=== PATIENT | female | born 1930 | race Caucasian/White ===

== ENCOUNTER 2018-04-13 14:38 | Observation (INO) | payer OTHER ==
[2018-04-13] MEDS ORDERED: FUROSEMIDE 20 MG/ 2ML VIAL ONE (15:09)
[2018-04-13] MEDS ORDERED: METHYLPREDNISOLONE 125 MG INJ ONE (15:09)
[2018-04-13 15:16] LABS: Absolute Lymphocytes (CBC) 1.8 K/uL (0.7-4.9); Absolute Monocytes 0.5 K/uL (0.1-1.3); Absolute Neutrophil 4.4 K/uL (1.8-8.0); Basophils % 0.5 % (0-1.3); Eosinophils % 1.2 % (0-4.4); Hematocrit 43.3 % (36.0-45.0); Lymphocytes % 26.6 % (15.3-44.8); MCH 29.5 pg (27.0-35.0); MCV 86.1 fL (80-100); MPV 10.6 fL (7.6-11.3); Monocytes % 6.8 % (3.3-12.3); RBC Red Blood Cell Count 5.02 M/uL (3.86-4.86)
--- NOTE | 2018-04-13 15:24 | EKG ---
Test Date: 2018-04-13 Test Time: 14:59:00 Tube Machine Operator Helper: JUAN MEASUREMENT RESULTS: Intervals: Rate: 76 NC: 184 QRSD: 78 QT: 416 QTc: 468 [place]: P: 74 NC: 184 QRS: 46 T: 89 INTERPRETIVE STATEMENTS: Normal sinus rhythm Normal ECG Compared to ECG 03/04/2014 06:24:20 No significant changes Electronically Signed On 04-13-18 15:23:46 RESEARCH SPECIALIST by Donal Nichols
[2018-04-13 15:35] LABS: BUN Blood Urea Nitrogen 34 mg/dL (7-18); Bicarbonate 33 mmol/L (21-32); Glucose Level 161 mg/dL (74-106); NT PRO-BNP 820 pg/mL (<450); Potassium 3.6 mmol/L (3.5-5.1); Sodium Level 143 mmol/L (136-145); Troponin (Emerg Dept Use Only) < 0.02 ng/mL (0.0-0.045)
--- NOTE | 2018-04-13 15:41 | RAD REPORT ---
EXAM DESCRIPTION: RAD - Chest Single View - 04/13/2018 3:30 pm CLINICAL HISTORY: Shortness of breath COMPARISON: February 2014 TECHNIQUE: AP portable chest image was obtained 1515 hours . FINDINGS: Lungs are fibrotic with no focal infiltrate, mass or significant failure finding. Cardiac silhouette is enlarged and increased from the prior study. Vasculature is mildly prominent. A minimal failure or volume overload is possible. Trachea is midline. No measurable pleural effusion and no pn eumothorax. No acute bony abnormality seen. No acute aortic finding. Patient has a very large hiatal hernia with most if not all of the stomach in the midline and right s ariela chest. This is not new but is substantially enlarged from the comparison. IMPRESSION: No focal mass or consolidation. Heart, vasculature and lung markings are increased from comparison and may reflect a mild failure or volume overload. Very large hiatal hernia with most if not all of the stomach intrathoracic. This is not new but has i ncreased from 2013.
[2018-04-13] MEDS ORDERED: LEVALBUTEROL 1.25 MG/3 ML NEB ONE (16:22)
--- NOTE | 2018-04-13 16:26 | ER ---
Nurse's Notes [facility] Name: Dasha Brown Age: 87 yrs Sex: Female : 1930 Arrival Date: 04/13/2018 Time: 14:40 Bed 18 Private MD: Diagnosis: Chronic obstructive pulmonary disease with acute lower respiratory infection;Pulmonary edema;Dyspnea Presentation: 04/13 14:40 Presenting complaint: EMS states: pt was short of breath that has gotten worse over the tw2 past 2 weeks. Transition of care: patient was received from another setting of care (long-term care [facility]. Onset of symptoms was April 13, 2018 at 14:41. Risk Assessment: Do you want to hurt yourself or someone else? Patient reports no desire to harm self or others. Initial Sepsis Screen: Does the patient meet any 2 criteria? RR > 20 per min. Does the patient have a suspected source of infection? No. Patient's initial sepsis screen is negative. Care prior to arrival: Medication(s) given: Albuterol Neb x 1. 14:40 Method Of Arrival: EMS: [facility] tw2 14:40 Acuity: CY 3 tw2 Triage Assessment: 14:50 General: Appears in no apparent distress. Behavior is calm. Respiratory: Reports tw2 shortness of breath Onset: The symptoms/episode began/occurred "i have been telling them for a week about this", the patient has mild shortness of breath. Historical: - Allergies: 15:14 Lipitor; ph - Home Meds: 15:14 amlodipine 10 mg tab 1 tab once daily [Active]; Aricept 5 mg Oral tab 1 tab nightly ph [Active]; aspirin 81 mg Oral chew 1 tab once daily [Active]; clopidogrel 75 mg oral tab 1 tab once daily [Active]; Combivent Respimat 20-100 mcg/actuation inhalation mist 1 puff 4 times per day [Active]; diclofenac sodium 0.1 % ophthalmic drop 1 drop three times a day [Active]; Flonase 50 mcg/actuation Nasal spsn 1 spray 2 times per day [Active]; ipratropium-albuterol 0.5 mg-3 mg(2.5 mg base)/3 mL Inhl nebu 3 mL 4 times per day [Active]; Klor-Con 10 10 mEq Oral TbER 1 tab once daily [Active]; loratadine 10 mg oral tab 1 tab once daily [Active]; Lyrica 75 mg Oral 1 cap 2 times per day for Postherpetic Neuralgia [Active]; Namenda 10 mg oral tab 1 tab 2 times per day [Active]; simvastatin 10 mg Oral tab 1 tab once daily [Active]; Tylenol 325 mg oral tab 2 tabs every 6 hours [Active]; valsartan-hydrochlorothiazide 160-12.5 mg oral tab 1 tab once daily [Active]; - PMHx: 15:14 Dementia; Trigeminal neuralgia; Hyperlipidemia; Hypertension; TIA; heart murmur ph (benign); COPD; Aortic Stenosis; - Immunization history:: Adult Immunizations. - Social history:: Smoking status: . - Family history:: not pertinent. - Ebola Screening: : Patient denies travel to an Ebola-affected area in the 21 days before illness onset. - Hospitalizations: : No recent hospitalization is reported. Screenin:05 Abuse screen: Denies threats or abuse. Nutritional screening: No deficits noted. tw2 Tuberculosis screening: No symptoms or risk factors identified. Fall Risk Secondary diagnosis (15 points) dementia, impaired mobility. Assessment: 14:40 General: Appears in no apparent distress. obese, Behavior is calm, cooperative, tw2 appropriate for age. Pain: Denies pain. Neuro: Level of Consciousness is awake, alert, obeys commands, Oriented to person, place. Cardiovascular: Rhythm is sinus rhythm. Respiratory: Airway is patent Respiratory effort is even, unlabored, Respiratory pattern is regular, symmetrical, Breath sounds with crackles bilaterally. GI: No signs and/or symptoms were reported involving the gastrointestinal system. Abdomen is round non-distended, obese, Bowel sounds present X 4 quads. : No signs and/or symptoms were reported regarding the genitourinary system. EENT: No signs and/or symptoms were reported regarding the EENT system. Derm: No signs and/or symptoms reported regarding the dermatologic system. Skin is intact, is fragile, is thin, Skin is dry. Musculoskeletal: Range of motion: intact in all extremities. 15:30 Reassessment: Patient appears in no apparent distress at this time. No changes from tw2 previously documented assessment. Patient and/or family updated on plan of care and expected duration. Pain level reassessed. 16:04 Reassessment: Patient appears in no apparent distress at this time. No changes from tw2 previously documented assessment. Patient and/or family updated on plan of care and expected duration. Pain level reassessed. 17:04 Reassessment: Patient appears in no apparent distress at this time. No changes from tw2 previously documented assessment. Patient and/or family updated on plan of care and expected duration. Pain level reassessed. 17:36 Reassessment: order Flu per Dr. Trejo. tw2 18:05 Reassessment: Patient appears in no apparent distress at this time. No changes from tw2 previously documented assessment. Patient and/or family updated on plan of care and expected duration. Pain level reassessed. 19:11 General: Appears in no apparent distress. comfortable, Behavior is calm, cooperative. ao Pain: Denies pain. Neuro: Level of Consciousness is awake, alert, obeys commands, Oriented to person, place, Moves all extremities. Full function Speech is normal, Cardiovascular: Heart tones S1 S2 Capillary refill < 3 seconds. Respiratory: Airway is patent Respiratory effort is even, unlabored, Respiratory pattern is regular, symmetrical, Breath sounds with crackles bilaterally. GI: Abdomen is round non-distended, obese, Bowel sounds present X 4 quads. : No signs and/or symptoms were reported regarding the genitourinary system. EENT: No signs and/or symptoms were reported regarding the EENT system. Derm: Skin is intact, is fragile, is thin, Skin is. Musculoskeletal: Range of motion: intact in all extremities. 19:20 Reassessment: Waiting on nurse to give report. Patient o be admitted to the hospital. ao Vital Signs: 14:41 BP 187 / 78; Pulse 77; Resp 20; Pulse Ox 100% on R/A; Pain 0/10; tw2 14:41 Temp 97.7(O); tw2 15:30 BP 127 / 48; Pulse 69; Resp 15; Pulse Ox 100% on 2 lpm NC; tw2 16:03 BP 129 / 57; Pulse 86; Resp 17; Pulse Ox 99% on 2 lpm NC; tw2 17:03 BP 143 / 54; Pulse 79; Resp 17; Pulse Ox 97% on R/A; tw2 18:05 BP 123 / 47; Pulse 65; Resp 18; Pulse Ox 95% on R/A; tw2 19:15 BP 120 / 50; Pulse 78; Resp 18; Pulse Ox 94% on R/A; Pain 0/10; ao ED Course: 14:40 Patient arrived in ED. tw2 14:40 Margarito Cisneros MD is Attending Physician. rn 14:40 Arm band placed on. tw2 14:40 Bed in low position. Side rails up X2. monitoring specialist on. Pulse ox on. NIBP on. tw2 14:41 Triage completed. tw2 14:45 Inserted saline lock: 22 gauge in right antecubital area, using aseptic technique. tw2 Blood collected. 14:57 Anjali Gardner RN is Primary Nurse. tw2 15:02 EKG done, by radio television technical director. reviewed by Margarito Cisneros MD. dt2 15:05 Figueredo cath inserted, using sterile technique, 16 Fr., by nd, balloon inflated, to tw2 gravity drainage, urine specimen collected. Teja Marmolejo served as music sound light technician. 15:29 X-ray completed. Portable x-ray completed in exam room. Patient tolerated procedure az well. 15:30 XRAY CXR (1 view) In Process Unspecified. EDMS 16:25 Jackson Trejo MD is Hospitalizing Provider. rn 19:00 Report given to JARVIS Odell. tw2 19:15 Primary Nurse role handed off by Anjali Gardner RN ao 19:15 Jose R Washington RN is Primary Nurse. ao 20:29 No provider procedures requiring assistance completed. Patient admitted, IV remains in ao place. Administered Medications: 15:12 Drug: SOLU-Medrol 125 mg Route: IVP; Site: right antecubital; tw2 16:15 Follow up: Response: No adverse reaction tw2 15:14 Drug: Lasix 20 mg Route: IVP; Site: right antecubital; tw2 16:15 Follow up: Response: No adverse reaction tw2 16:14 Drug: Xopenex (3) 1.25 mg Route: Inhalation; tw2 Outcome: 16:25 Decision to Hospitalize by Provider. rn 20:29 Admitted to Tele accompanied by tech, room 414, with chart, Report called to gibson Witt RN 20:29 Condition: stable 20:29 Instructed on the need for admit. 20:30 Patient left the ED. ao Signatures: Dispatcher [employer] EDMS Margarito Cisneros MD MD rn Rust, Yasmin, RN RN Jose R Washington, RN RN Anjali Johnson RN RN tw2 Alisa Silva 2 Shital Hooper Corrections: (The following items were deleted from the chart) 16:04 16:03 BP 127 / 48; Pulse 69bpm; Resp 15bpm; Pulse Ox 100% RA; tw2 tw2
--- NOTE | 2018-04-13 16:26 | EDPHYS ---
Physician Documentation [facility] Name: Dasha Brown Age: 87 yrs Sex: Female : 1930 Arrival Date: 04/13/2018 Time: 14:40 Bed 18 Private MD: ED Physician Margarito Cisneros HPI: 04/13 15:55 This 87 yrs old Female presents to ER via EMS with complaints of Shortness Of rn Breath. 15:55 The patient has shortness of breath at rest. Onset: The symptoms/episode began/occurred rn 2 week(s) ago. Duration: The symptoms are intermittent. The patient's shortness of breath is aggravated by coughing, light activity, supine position. Severity of symptoms: At their worst the symptoms were moderate in the emergency department the symptoms are unchanged. The patient has experienced similar episodes in the past. The patient has been recently seen by a physician:. 15:57 [facility], intermittent for 2 weeks, has hx of copd and takes rn lasix for "localized swelling". No fever, + cough. . Historical: - Allergies: 15:14 Lipitor; ph - Home Meds: 15:14 amlodipine 10 mg tab 1 tab once daily [Active]; Aricept 5 mg Oral tab 1 tab nightly ph [Active]; aspirin 81 mg Oral chew 1 tab once daily [Active]; clopidogrel 75 mg oral tab 1 tab once daily [Active]; Combivent Respimat 20-100 mcg/actuation inhalation mist 1 puff 4 times per day [Active]; diclofenac sodium 0.1 % ophthalmic drop 1 drop three times a day [Active]; Flonase 50 mcg/actuation Nasal spsn 1 spray 2 times per day [Active]; ipratropium-albuterol 0.5 mg-3 mg(2.5 mg base)/3 mL Inhl nebu 3 mL 4 times per day [Active]; Klor-Con 10 10 mEq Oral TbER 1 tab once daily [Active]; loratadine 10 mg oral tab 1 tab once daily [Active]; Lyrica 75 mg Oral 1 cap 2 times per day for Postherpetic Neuralgia [Active]; Namenda 10 mg oral tab 1 tab 2 times per day [Active]; simvastatin 10 mg Oral tab 1 tab once daily [Active]; Tylenol 325 mg oral tab 2 tabs every 6 hours [Active]; valsartan-hydrochlorothiazide 160-12.5 mg oral tab 1 tab once daily [Active]; - PMHx: 15:14 Dementia; Trigeminal neuralgia; Hyperlipidemia; Hypertension; TIA; heart murmur ph (benign); COPD; Aortic Stenosis; - Immunization history:: Adult Immunizations. - Social history:: Smoking status: . - Family history:: not pertinent. - Ebola Screening: : Patient denies travel to an Ebola-affected area in the 21 days before illness onset. - Hospitalizations: : No recent hospitalization is reported. ROS: 16:01 Constitutional: Negative for fever, chills, and weight loss, Eyes: Negative for injury, rn pain, redness, and discharge, Neck: Negative for injury, pain, and swelling, Cardiovascular: Negative for chest pain, palpitations Respiratory: Negative for pleuritic chest pain Abdomen/GI: Negative for abdominal pain, nausea, vomiting, diarrhea, and constipation, MS/Extremity: Negative for injury and deformity, Skin: Negative for injury, rash, and discoloration, Neuro: Negative for headache, numbness, tingling, and seizure. Exam: 16:01 Constitutional: This is a well developed, well nourished patient who is awake, alert, rn mild tachypnea Head/Face: Normocephalic, atraumatic. ENT: dry MM, no stridor Cardiovascular: Regular rate and rhythm, No pulse deficits. Respiratory: + mild tachypnea, no retractions, + diminished bases with exp wheezing. Abdomen/GI: soft, non-tender MS/ Extremity: Pulses equal, no cyanosis. Neurovascular intact. Full, normal range of motion. Equal circumference. 1+ non-pitting edema bilateral lower ext Neuro: Awake and alert, GCS 15, oriented to person, place. Cranial nerves II-XII grossly intact. Motor strength 5/5 in all extremities. Sensory grossly intact. Vital Signs: 14:41 BP 187 / 78; Pulse 77; Resp 20; Pulse Ox 100% on R/A; Pain 0/10; tw2 14:41 Temp 97.7(O); tw2 15:30 BP 127 / 48; Pulse 69; Resp 15; Pulse Ox 100% on 2 lpm NC; tw2 16:03 BP 129 / 57; Pulse 86; Resp 17; Pulse Ox 99% on 2 lpm NC; tw2 17:03 BP 143 / 54; Pulse 79; Resp 17; Pulse Ox 97% on R/A; tw2 18:05 BP 123 / 47; Pulse 65; Resp 18; Pulse Ox 95% on R/A; tw2 19:15 BP 120 / 50; Pulse 78; Resp 18; Pulse Ox 94% on R/A; Pain 0/10; ao MDM: 14:40 Patient medically screened. rn 16:23 Differential diagnosis: Anemia Bronchitis CHF exacerbation, Chronic Obstructive rn Pulmonary Disease Myocardial Infarction pneumonia, Pneumothorax pulmonary edema. Data reviewed: vital signs, nurses notes, lab test result(s), EKG, radiologic studies, plain films, and as a result, I will admit patient. Counseling: I had a detailed discussion with the patient and/or guardian regarding: the historical points, exam findings, and any diagnostic results supporting the discharge/admit diagnosis, lab results, radiology results, the need for further work-up and treatment in the hospital. Response to treatment: the patient's symptoms have mildly improved after treatment, and as a result, I will admit patient. Admission orders: after a detailed discussion of the patient's condition and case, the admit orders are written by me. ED course: Pt admitted to Dr. Trejo for COPD exacerbation and volume overload, not much oxygen requirement but + increased work of breathing despite 1 week of symptoms and outpt treatment. . 04/13 14:41 Order name: Blood Culture Adult (2) rn 04/13 14:41 Order name: BMP; Complete Time: 16:05 04/13 14:41 Order name: CBC with Diff; Complete Time: 16:05 04/13 14:41 Order name: NT PRO-BNP; Complete Time: 16:05 rn 04/13 14:41 Order name: Troponin (emerg Dept Use Only); Complete Time: 16:05 rn 04/13 15:37 Order name: Urine Dipstick--Ancillary (enter results); Complete Time: 16:57 04/13 14:41 Order name: XRAY CXR (1 view); Complete Time: 16:05 rn 04/13 14:41 Order name: EKG; Complete Time: 14:42 rn 04/13 14:41 Order name: Cardiac monitoring; Complete Time: 14:58 rn 04/13 14:41 Order name: EKG - Nurse/Tech; Complete Time: 14:58 rn 04/13 17:36 Order name: Flu; Complete Time: 18:15 tw2 04/13 14:41 Order name: IV Saline Lock; Complete Time: 14:58 rn 04/13 14:41 Order name: Labs collected and sent; Complete Time: 14:58 rn 04/13 14:41 Order name: O2 Per Protocol; Complete Time: 14:58 rn 04/13 14:41 Order name: O2 Sat Monitoring; Complete Time: 14:58 rn 04/13 15:14 Order name: Figueredo; Complete Time: 15:15 tw2 Administered Medications: 15:12 Drug: SOLU-Medrol 125 mg Route: IVP; Site: right antecubital; tw2 16:15 Follow up: Response: No adverse reaction tw2 15:14 Drug: Lasix 20 mg Route: IVP; Site: right antecubital; tw2 16:15 Follow up: Response: No adverse reaction tw2 16:14 Drug: Xopenex (3) 1.25 mg Route: Inhalation; tw2 Disposition: 04/13/18 16:25 Hospitalization ordered by Jackson Trejo for Inpatient Admission. Preliminary diagnosis are Chronic obstructive pulmonary disease with acute lower respiratory infection, Pulmonary edema, Dyspnea. - Bed requested for Telemetry/MedSurg (Inpatient). - Status is Inpatient Admission. ao - Condition is Stable. - Problem is an ongoing problem. - Symptoms have improved. UTI on Admission? No Signatures: Dispatcher [employer] EDGA Adelaida Aquino RN RN Margarito Cisneros MD MD rn Hall, Patricia, RN RN Jose R Washington RN RN ao Wise, Tara, RN RN tw2 Margarita Rodriguez Corrections: (The following items were deleted from the chart) 16:51 16:25 Hospitalization Ordered by Jackson Trejo MD for Inpatient Admission. Preliminary eb diagnosis is Chronic obstructive pulmonary disease with acute lower respiratory infection; Pulmonary edema; Dyspnea. Bed requested for Telemetry/MedSurg (Inpatient). Status is Inpatient Admission. Condition is Stable. Problem is an ongoing problem. Symptoms have improved. UTI on Admission? No. rn 18:40 16:51 04/13/2018 16:25 Hospitalization Ordered by Jackson Trejo MD for Inpatient dw Admission. Preliminary diagnosis is Chronic obstructive pulmonary disease with acute lower respiratory infection; Pulmonary edema; Dyspnea. Bed requested for Telemetry/MedSurg (Inpatient). Status is Inpatient Admission. Condition is Stable. Problem is an ongoing problem. Symptoms have improved. UTI on Admission? No. eb 20:30 18:40 04/13/2018 16:25 Hospitalization Ordered by Jackson Trejo MD for Inpatient ao Admission. Preliminary diagnosis is Chronic obstructive pulmonary disease with acute lower respiratory infection; Pulmonary edema; Dyspnea. Bed requested for Telemetry/MedSurg (Inpatient). Status is Inpatient Admission. Condition is Stable. Problem is an ongoing problem. Symptoms have improved. UTI on Admission? No. dw
[2018-04-13 16:44] LABS: Urine Blood NEGATIVE (NEG); Urine Glucose NEGATIVE (NEG); Urine Protein NEGATIVE (NEG); Urine Specific Gravity 1.015 (1.005-1.030)
--- NOTE | 2018-04-13 18:38 | P.HP ---
Certification for Inpatient Patient admitted to: Inpatient With expected LOS: >2 Midnights Practitioner: I am a practitioner with admitting privileges, knowledge of patient current condition, hospital course, and medical plan of care. Services: Services provided to patient in accordance with Admission requirements found in Title 42 Section 412.3 of the Code of Federal Regulations Patient History Date of Service: 04/13/18 Reason for admission: Increased work of breathing History of Present Illness: This is an 79-year-old female admitted from [facility] for increased work of breathing. Unable to get any history from patient as she seems to be very confused (baseline?) and unable to really provide what's going on with her. Per chart review, patient has been having increased work of breathing for the past 1-1.5 weeks that has not been improving with her regular breathing treatments. In the ED, she was given 20 mg of IV Lasix, 125 mg of Solu-Medrol and 3 of 1.25 mg of Xopenex. At the time of my exam, patient is arousable, can have conversations though does not really seem to remember much and seems to be confused. She was oriented to self only. Review of Systems is unable to be obtained Physical Examination - Physical Exam General: In no apparent distress, Oriented x1, Confused, Other (Arousable, also responsive to questions just not appropriately) HEENT: Atraumatic, PERRLA, Mucous membr. moist/pink, EOMI, Sclerae nonicteric Neck: Supple, 2+ carotid pulse no bruit, No LAD, Without JVD or thyroid abnormality Respiratory: Dull, Expiratory wheezes, Inspiratory wheezes Cardiovascular: Regular rate/rhythm, Normal S1 S2 Gastrointestinal: Normal bowel sounds, No tenderness Musculoskeletal: No tenderness Integumentary: No rashes Neurological: Normal gait, Normal speech, Normal strength at 5/5 x4 extr, Normal tone, Normal affect Lymphatics: No axilla or inguinal lymphadenopathy - Studies Laboratory Data (last 24 hrs) 04/13/18 14:50: WBC 6.8, Hgb 14.8, Hct 43.3, Plt Count 194 04/13/18 14:50: Sodium 143, Potassium 3.6, BUN 34 H, Creatinine 1.60 H, Glucose 161 H Microbiology Data (last 24 hrs): 04/13/18 17:39 Nasopharnyx Influenza Type A Antigen Screen - Final 04/13/18 17:39 Nasopharnyx Influenza Type B Antigen Screen - Final Assessment and Plan - Plan This is an 79-year-old female admitted from [facility] with: Acute respiratory distress Large hiatal hernia Acute kidney injury Dementia Hyperlipidemia Essential hypertension. History of TIA COPD, acute exacerbation Aortic stenosis Admit patient to floor with tele. Breathing treatments as needed Oxygen per protocol Will continue IV steroids, weaned to oral as tolerated The increased work of breathing, is likely secondary to this large hiatal hernia that has increased from 2013 versus COPD exacerbation. May need to get GI and/or surgical evaluation. Unsure if she is a good surgical candidate at this time though. Barium swallow study ordered to see if hiatal hernia can be evaluated further Will restart home medications once they have been reconciled. DVT prophylaxis: Lovenox GI prophylaxis: None Diet: Heart healthy Disposition: Admit to floor with tele. Pending symptomatic improvement. - Advance Directives Does patient have a Living Will: No Does patient have a Durable POA for Healthcare: No Time Spent Managing Pts Care (In Minutes): 55
[2018-04-13] MEDS ORDERED: ALBUTEROL 2.5 MG/3 ML NEB SOL NEB PRN (20:53)
[2018-04-13] MEDS ORDERED: ONDANSETRON 4 MG/2 ML VIAL IV PRN (20:53)
[2018-04-13] MEDS: IPRATROPIUM BROM 0.5MG/2.5ML NEB SCH (22:20)
[2018-04-14] MEDS: IPRATROPIUM BROM 0.5MG/2.5ML NEB SCH ×4 (02:40→19:37)
[2018-04-14 04:07] LABS: Absolute Lymphocytes (CBC) 0.4 K/uL (0.7-4.9); Absolute Neutrophil 4.6 K/uL (1.8-8.0); Hematocrit 36.2 % (36.0-45.0); Lymphocytes % 7.8 % (15.3-44.8); MCV 85.5 fL (80-100); MPV 10.7 fL (7.6-11.3); RBC Red Blood Cell Count 4.24 M/uL (3.86-4.86)
[2018-04-14 04:27] LABS: Albumin 2.8 g/dL (3.4-5.0); Bilirubin Total 0.2 mg/dL (0.2-1.0); Magnesium 2.4 mg/dL (1.8-2.4); Phosphorus 4.4 mg/dL (2.5-4.9); Potassium 3.7 mmol/L (3.5-5.1); Protein, Total 7.1 g/dL (6.4-8.2)
[2018-04-14 06:02] LABS: Blood Morphology Comment NOT SEEN (NOT SEEN); Platelet Estimate ADEQ
[2018-04-14] MEDS ORDERED: POTASSIUM CL SA 10 MEQ TAB PO ONE (06:30)
[2018-04-14] MEDS: ENOXAPARIN 30 MG/0.3 ML SQ SCH (09:26)
[2018-04-14] MEDS: CLOPIDOGREL 75 MG TABLET PO SCH (12:36)
[2018-04-14] MEDS: hydroCHLOROthiazide 12.5 MG CAP PO SCH (12:36)
[2018-04-14] MEDS: FUROSEMIDE 40 MG TABLET PO SCH (12:36)
[2018-04-14] MEDS: LORATADINE 10 MG TAB PO SCH (12:36)
[2018-04-14] MEDS: VALSARTAN 80 MG TAB PO SCH (12:37)
[2018-04-14] MEDS: AMLODIPINE 10 MG TAB PO SCH (12:37)
[2018-04-14] MEDS: MEMANTINE HCL 10 MG TABLET PO SCH ×2 (12:38→21:33)
[2018-04-14] MEDS: PREGABALIN 75 MG CAP PO SCH ×2 (12:38→21:28)
[2018-04-14] MEDS: ASPIRIN 81 MG CHEWABLE TABLET PO SCH (12:38)
--- NOTE | 2018-04-14 12:51 | RAD REPORT ---
EXAM DESCRIPTION: RAD - Esophagram Only - 04/14/2018 12:01 pm CLINICAL HISTORY: Abdominal pain/abnormal radiologic exam COMPARISON: 2008 CT chest FINDINGS: A large paraesophageal hiatal hernia is present. The herniated stomach lies to the right o f midline. The wall of distal esophagus is thickened. The mucosal folds of the esophagus are thickened. No obstructing or constricting lesions are noted Fluoroscopy time 2.4 minutes. Twenty-four fluoroscopic spot images obtained IMPRESSION: Large paraesophageal hiatal hernia Thickened esophageal mucosal folds may indicate an esophagitis Thickening of the wall of the distal esophagus may be secondary to incomplete distention, inflammatio n or less likely a mass. CT abdomen recommended for further evaluation
[2018-04-14] MEDS ORDERED: OPTH OPTH SCH (14:00)
[2018-04-14] MEDS ORDERED: DICLOFENAC NA OPTH SCH (14:00)
[2018-04-14] MEDS ORDERED: SODIUM CHLORIDE 0.9% 10ML INJ IV PRN (15:43)
[2018-04-14] MEDS: PANTOPRAZOLE 40 MG INJ IVP SCH (16:28)
--- NOTE | 2018-04-14 20:21 | PN ---
Date of Progress Note: 04/14/2018 History: The patient seen and examined. Chart reviewed and case discussed with RN. No acute events overnight. The patient still having some shortness of breath requiring supplemental oxygen. Code status, full. Medications: List reviewed. Physical Examination: Vital Signs: Temperature 98.1, heart rate 78, blood pressure 120/51, respirations 18, O2 94% on 1 L via nasal cannula. General: Awake, alert, oriented x1, some mild distress. Elderly female, ill- appearing, obese. CV: S1, S2. Regular rate and rhythm. Peripheral pulses present. Respiratory: Diminished breath sounds. Some crackles heard. No stridor. No wheezing. No use of accessory muscles. Gastrointestinal: Abdomen is soft, nontender, nondistended. Positive bowel sounds. Extremities: No clubbing, cyanosis. Trace pedal edema. Neuro: Nonfocal. Laboratory Data: Sodium 145, potassium 3.7, chloride 107, CO2 30, BUN 43, creatinine 1.5, glucose 143, calcium 8.8, phosphorus 4.4, magnesium 2.4, albumin 2.8. WBC 5, H and H 12.3 and 36.2, platelets 162. UA is negative. Blood cultures pending. Influenza screen is also negative. Barium study esophagram shows large paraesophageal hiatal hernia. Thickened esophageal mucosal folds may indicate an esophagitis. Thickening of the wall of the distal esophagus may be secondary to incomplete distention, inflammation, or less likely a mass. CT abdomen recommended for further evaluation. Assessment And Plan: An 87-year-old female with: 1. Acute respiratory distress. Continue supplementary oxygen and wean off as tolerated. 2. Likely secondary to pulmonary edema. 3. Large hiatal hernia. Esophagram does show some thickening, possible esophagitis. 4. Acute kidney injury. Creatinine slightly improved. We will continue IV fluids and monitor. 5. Alzheimer dementia, early onset, without behavioral disturbance. Continue home medications. 6. Mixed hyperlipidemia. Statin. 7. Essential hypertension. Resume home medications as appropriate. 8. History of transient ischemic attack. 9. Chronic obstructive pulmonary disease with acute exacerbation. We will continue with nebulizer treatments and steroids. 10. History of aortic stenosis. 11. Gastrointestinal and deep venous thrombosis prophylaxes with Lovenox. We will add PPI. 12. Dysphagia. The patient on altered diet at the detention. Plan: The patient will likely need CT abdomen and will obtain GI consultation. ADDENDUM: PCP is Dr. Aguilar. Spoke with him regarding transfer of service. He accepted the patient. Also discussed w Dr. Rodriguez. Patient needs thoracic surgery for hiatal hernia however not a candidate. /LASHAWN Voice ID: [id number] Report ID: [id number] MTDDaylin
[2018-04-14] MEDS ORDERED: DONEPEZIL HCL 5 MG TAB PO SCH (21:00)
[2018-04-15] MEDS: IPRATROPIUM BROM 0.5MG/2.5ML NEB SCH ×3 (01:38→13:55)
[2018-04-15 04:43] LABS: Absolute Lymphocytes (CBC) 1.6 K/uL (0.7-4.9); Absolute Monocytes 0.8 K/uL (0.1-1.3); Absolute Neutrophil 9.4 K/uL (1.8-8.0); Basophils % 0.2 % (0-1.3); Eosinophils % 0.1 % (0-4.4); Lymphocytes % 13.4 % (15.3-44.8); MCH 28.7 pg (27.0-35.0); MCV 85.6 fL (80-100); MPV 10.7 fL (7.6-11.3); Monocytes % 7.1 % (3.3-12.3)
[2018-04-15 04:53] LABS: Albumin 2.8 g/dL (3.4-5.0); Bilirubin Total 0.3 mg/dL (0.2-1.0); Potassium 3.2 mmol/L (3.5-5.1); Protein, Total 6.9 g/dL (6.4-8.2)
[2018-04-15] MEDS ORDERED: KCL 20 MEQ/100 mL IVPB 20 MEQ/100 ML BAG IV SCH (07:00)
[2018-04-15] MEDS ORDERED: HOME MED 1 EA UNK (Fluticasone Propionate [Flonase Allergy Relief] 1 SPRAY) SCH (09:00)
[2018-04-15] MEDS ORDERED: POTASSIUM 25 MEQ EFFERV TAB PO ONE (09:00)
[2018-04-15] MEDS ORDERED: HOME MED 1 EA UNK (Simvastatin [Simvastatin] 10 MG) PO SCH (09:00)
[2018-04-15] MEDS: ENOXAPARIN 30 MG/0.3 ML SQ SCH (09:51)
[2018-04-15] MEDS: FUROSEMIDE 40 MG TABLET PO SCH (09:52)
[2018-04-15] MEDS: AMLODIPINE 10 MG TAB PO SCH (09:52)
[2018-04-15] MEDS: VALSARTAN 80 MG TAB PO SCH (09:53)
[2018-04-15] MEDS: hydroCHLOROthiazide 12.5 MG CAP PO SCH (09:53)
[2018-04-15] MEDS: CLOPIDOGREL 75 MG TABLET PO SCH (09:53)
[2018-04-15] MEDS: PREGABALIN 75 MG CAP PO SCH (09:53)
[2018-04-15] MEDS: ASPIRIN 81 MG CHEWABLE TABLET PO SCH (09:54)
[2018-04-15] MEDS: MEMANTINE HCL 10 MG TABLET PO SCH (09:54)
[2018-04-15] MEDS: LORATADINE 10 MG TAB PO SCH (09:54)
[2018-04-15] MEDS: PANTOPRAZOLE 40 MG INJ IVP SCH (10:01)
--- NOTE | 2018-04-15 10:55 | RAD REPORT ---
EXAM DESCRIPTION: CT - Abdomen Pelvis Wo Contrast - 04/15/2018 9:30 am CLINICAL HISTORY: Abdominal pain COMPARISON: April 14, 2018 esophagram TECHNIQUE: Computed axial tomography of the abdomen and pelvis was obtained. IV and oral contrast we re not requested. All CT scans are performed using dose optimization technique as appropriate and may include automated exposure control or mA/KV adjustment according to patient size. FINDINGS: The evaluation of solid organs, vessels and bowel is limited secondary to the lack of con trast administration. A large paraesophageal hiatal hernia is seen. And us esophageal/ gastric mass is not suspected. The liver, spleen, pancreas, and adrenal appear grossly normal. Small proteinaceous/hemorrhagic renal cysts are present. A Figueredo catheter is present the bladder. The rectum is mildly distended with stool. Gallstones are suspected IMPRESSION: Cholelithiasis without evidence of cholecystitis A large hiatal hernia
--- NOTE | 2018-04-15 14:38 | P.DS ---
Admission Date: 04/13/18 Discharge Date: 04/15/18 Disposition: TRANSFER TO [facility] Discharge Condition: FAIR Reason for Admission: Increased work of breathing - Problems (1) Acute respiratory distress Onset Date: 04/14/18 Current Visit: Yes Status: Acute (2) Dementia Onset Date: 04/14/18 Current Visit: Yes Status: Acute Qualifiers: Dementia type: Alzheimer's disease (3) Hiatal hernia Onset Date: 04/14/18 Current Visit: Yes Status: Acute Brief History of Present Illness: Patient sent from [facility] She had a pulse ox of 88% on oxygen. was admitted by the hospitalist Hospital Course: Patient breathing improved with a bit of lasix and steroids. Was seen in the hospital by Dr. Rodriguez. Who believes the hiatal hernia may be causing shortness of breath. However needs surgery. In a pt with dementia this will need a family meeting. However she is currently stable. Will discharge her home. have the patient refered to Dr. Fernández Vital Signs/Physical Exam: Temp Pulse Resp BP Pulse Ox 97.4 F 70 20 125/57 L 96 04/15/18 12:00 04/15/18 12:00 04/15/18 12:00 04/15/18 12:00 04/15/18 12:00 General: Alert, In no apparent distress HEENT: Atraumatic, PERRLA, EOMI Neck: Supple, JVD not distended Respiratory: Clear to auscultation bilaterally, Normal air movement Cardiovascular: Regular rate/rhythm, Normal S1 S2 Gastrointestinal: Normal bowel sounds, No tenderness Musculoskeletal: No tenderness Integumentary: No rashes Neurological: Normal speech, Normal tone, Normal affect Lymphatics: No axilla or inguinal lymphadenopathy Laboratory Data at Discharge: WBC 11.8 K/uL (4.3-10.9) H D 04/15/18 03:37 Hgb 12.1 g/dL (12.0-15.0) 04/15/18 03:37 Hct 36.0 % (36.0-45.0) 04/15/18 03:37 Plt Count 145 K/uL (152-406) L 04/15/18 03:37 Sodium 144 mmol/L (136-145) 04/15/18 03:37 Potassium 3.2 mmol/L (3.5-5.1) L 04/15/18 03:37 BUN 40 mg/dL (7-18) H 04/15/18 03:37 Creatinine 1.20 mg/dL (0.55-1.3) 04/15/18 03:37 Glucose 83 mg/dL (74-106) 04/15/18 03:37 Phosphorus 4.4 mg/dL (2.5-4.9) 04/14/18 03:38 Magnesium 2.4 mg/dL (1.8-2.4) 04/14/18 03:38 Total Bilirubin 0.3 mg/dL (0.2-1.0) 04/15/18 03:37 AST 17 U/L (15-37) 04/15/18 03:37 ALT 18 U/L (12-78) 04/15/18 03:37 Alkaline Phosphatase 71 U/L (45-117) 04/15/18 03:37 Home Medications: Acetaminophen [Tylenol] 2 tab PO Q6H PRN 04/14/18 Amlodipine Besylate [Norvasc] 10 mg PO DAILY 04/14/18 Aspirin Chewable [Aspirin Chewable*] 81 mg PO DAILY 04/14/18 Clopidogrel Bisulfate [Plavix*] 75 mg PO DAILY 04/14/18 Diclofenac 0.1% Ophth [Voltaren*] 1 drop EACH EYE TID 04/14/18 Donepezil [Aricept*] 5 mg PO BEDTIME 04/14/18 Fluticasone Propionate [Flonase Allergy Relief] 1 spray .ROUTE DAILY 04/14/18 Furosemide [Lasix*] 40 mg PO DAILY 04/14/18 Ipratropium/Albuterol Sulfate [Combivent Respimat 20-100 Mcg] 1 puff IH Q6H PRN 04/14/18 Ipratropium/Albuterol Sulfate [Iprat-Albut 0.5-3(2.5) mg/3 ml] 1 vial IH Q6H PRN 04/14/18 Loratadine [Claritin*] 10 mg PO DAILY 04/14/18 Memantine HCl [Namenda*] 10 mg PO BID 04/14/18 Potassium Oral Tab [Klor-Con 10 mEq Tab*] 10 meq PO DAILY 04/14/18 Pregabalin [Lyrica*] 75 mg PO BID 04/14/18 Simvastatin 10 mg PO DAILY 04/14/18 Valsartan/Hydrochlorothiazide [Valsartan-Hctz 160-12.5 mg Tab] 1 tab PO DAILY Diet: Regular Activity: Fall precautions Followup: Pradeep Fernández MD [ACTIVE - CAN ADMIT] - 1-2 Weeks Time spent managing pt's care (in minutes): 30
== END 2018-04-15 16:00 ==
LOC: ER 14:38 → 4TH 18:34 → INTOOBSV 18:34
PROVIDERS: ADMIT Internal Medicine; ATTEND Family Medicine
DX: R06.03 Acute respiratory distress (principal); J44.1 Chronic obstructive pulmonary disease with (acute) exacerbation; K44.9 Diaphragmatic hernia without obstruction or gangrene; G30.9 Alzheimer's disease, unspecified; F02.80 Dementia in other diseases classified elsewhere, unspecified severity, without behavioral disturbance, psychotic disturbance, mood disturbance, and anxiety; N17.9 Acute kidney failure, unspecified; E78.2 Mixed hyperlipidemia; I10 Essential (primary) hypertension; R13.10 Dysphagia, unspecified; I35.0 Nonrheumatic aortic (valve) stenosis
CPT/HCPCS: 36415 ×2; 51702; 71045; 74176; 74220; 80048; 80053 ×2; 81003; 83735; 83880; 84100; 84484; 85025 ×3; 87040 ×2; 87804 ×2; 93005; 94640; 94760 ×3; 96374; 96375; 97163; 99285; C9113 ×2; G0378 ×2; J1650 ×2; J1940; J2930

== ENCOUNTER 2018-04-18 17:00 | Inpatient (IN) | payer OTHER ==
[2018-04-18] MEDS ORDERED: ALBUTEROL 2.5 MG/3 ML NEB SOL ONE (17:23)
[2018-04-18] MEDS ORDERED: IPRATROPIUM BROM 0.5MG/2.5ML ONE (17:23)
[2018-04-18] MEDS ORDERED: NA CHLORIDE 0.9% 1,000 ML ONE ×2 (17:29→18:47)
[2018-04-18 17:54] LABS: Absolute Lymphocytes (CBC) 0.6 K/uL (0.7-4.9); Absolute Monocytes 0.8 K/uL (0.1-1.3); Absolute Neutrophil 11.5 K/uL (1.8-8.0); Basophils % 0.1 % (0-1.3); Hematocrit 39.4 % (36.0-45.0); Lymphocytes % 4.3 % (15.3-44.8); MCH 28.4 pg (27.0-35.0); MCV 85.6 fL (80-100); Monocytes % 6.2 % (3.3-12.3); RBC Red Blood Cell Count 4.61 M/uL (3.86-4.86)
[2018-04-18] MEDS ORDERED: PIPER/TAZO/NS 3.375gm 3.375 GM/100 ML BAG ONE (17:58)
[2018-04-18 18:03] LABS: Protime INR 1.14
[2018-04-18 18:30] LABS: Blood Gas Oxyhemoglobin 86.3 % (94-97); Blood O2 Saturation 88.1 % (92-98.5)
[2018-04-18 18:53] LABS: Platelet Estimate DECR; Urine White Blood Cell Casts OK
[2018-04-18 18:54] LABS: Blood Morphology Comment NOT SEEN (NOT SEEN)
--- NOTE | 2018-04-18 19:00 | RAD REPORT ---
EXAM DESCRIPTION: Maribellt Single View04/18/2018 6:08 pm CLINICAL HISTORY: Cough COMPARISON: April 15, 2018 FINDINGS: A large hiatal hernia is present. Mild right basilar opacity probably represents atelectas is. Left lung appears clear. The heart is mildly to moderately enlarged
[2018-04-18 19:40] LABS: Albumin 2.7 g/dL (3.4-5.0); Bilirubin Direct 0.2 mg/dL (0-0.2); Bilirubin Total 0.4 mg/dL (0.2-1.0); Potassium 3.6 mmol/L (3.5-5.1); Protein, Total 7.6 g/dL (6.4-8.2); Troponin (Emerg Dept Use Only) 0.09 ng/mL (0.0-0.045)
[2018-04-18 20:10] LABS: Urine Blood 3+ (NEG); Urine Glucose NEGATIVE (NEG); Urine Protein 2+ (NEG); Urine pH 6.5 (5.0-7.0)
[2018-04-18 20:22] LABS: Urine Bacteria LOADED /HPF (<20); Urine Culture Reflex Order REFLEXED
--- NOTE | 2018-04-18 20:49 | RAD REPORT ---
EXAM DESCRIPTION: CT - Head Brain Wo Cont - 04/18/2018 8:18 pm CLINICAL HISTORY: Alteration of awareness/confusion COMPARISON: None TECHNIQUE: Computed axial tomography of the head was obtained. IV contrast was not requested. All CT scans are performed using dose optimization technique as appropriate and may include automated exposure control or mA/KV adjustment according to patient size. FINDINGS: An intracranial bleed is not seen . The ventricles are normal in caliber. No extra-axial fluid collection is noted. Moderate low-density areas within periventricular, deep and subcortical white matter likely represent ischemic changes secondary to small vessel disease. Fluid is present within the left maxillary and sphenoid sinus IMPRESSION: No acute intracranial abnormality is seen. If patient's symptoms persist MRI of the bra in would be recommended. Acute sinusitis
[2018-04-18] MEDS ORDERED: D5 0.45 NS 1,000 ML IV ONE (20:55)
[2018-04-18] MEDS ORDERED: NOREPINEPHRINE 4mg/D5W 250mL 4 MG/250 ML BAG IV ONE (20:58)
[2018-04-18] MEDS ORDERED: ASPIRIN 600 MG/SUPP PR ONE (21:34)
[2018-04-18] MEDS ORDERED: ENOXAPARIN 80 MG/0.8 ML SQ ONE (21:34)
--- NOTE | 2018-04-18 21:38 | ER ---
Nurse's Notes [facility] Name: Dasha Brown Age: 87 yrs Sex: Female : 1930 Arrival Date: 04/18/2018 Time: 17:01 Bed 3 Private MD: Diagnosis: Non-ST elevation (NSTEMI) myocardial infarction;Urinary tract infection, site not specified;Severe sepsis with septic shock Presentation: 04/18 17:06 Presenting complaint: EMS states: Facility reports that pt activity and awareness has tl3 decreased since coming back from being in the Hospital on Fri. for pneumonia. Transition of care: patient was received from another setting of care ([facility]. Onset of symptoms was April 18, 2018. Risk Assessment: Do you want to hurt yourself or someone else? Patient reports no desire to harm self or others. Initial Sepsis Screen: Does the patient meet any 2 criteria? Altered Mental Status. Does the patient have a suspected source of infection? Yes: Other: pneumonia. Care prior to arrival: oxygen sats 88% on room air, with NRB mask at 96%. 17:06 Method Of Arrival: EMS: [facility] tl3 17:06 Acuity: CY 3 tl3 17:36 Acuity: CY 2 ph Triage Assessment: 17:12 General: Appears uncomfortable, well groomed, well developed, well nourished, Behavior tl3 is flat, quiet. Pain: Unable to use pain scale. Does not appear to understand pain scale. EENT: No deficits noted. No signs and/or symptoms were reported regarding the EENT system. Neuro: Level of Consciousness is lethargic, Oriented to person. Cardiovascular: Heart tones S1 S2 Patient's skin is warm and dry. Respiratory: Airway is patent Respiratory effort is even, labored, Respiratory pattern is tachypnea Breath sounds are coarse in left upper lobe, left lower lobe, left posterior upper lobe and left posterior lower lobe Breath sounds with crackles in right middle lobe, right lower lobe, right posterior middle lobe and right posterior lower lobe Breath sounds with rhonchi in right middle lobe and right lower lobe. GI: No signs and/or symptoms were reported involving the gastrointestinal system. : No signs and/or symptoms were reported regarding the genitourinary system. Derm: No signs and/or symptoms reported regarding the dermatologic system. Historical: - Allergies: 17:12 Lipitor; tl3 - Home Meds: 17:12 amlodipine 10 mg tab 1 tab once daily [Active]; Aricept 5 mg Oral tab 1 tab nightly tl3 [Active]; aspirin 81 mg Oral chew 1 tab once daily [Active]; clopidogrel 75 mg Oral tab 1 tab once daily [Active]; Combivent Respimat 20-100 mcg/actuation inhalation mist 1 puff 4 times per day [Active]; diclofenac sodium 0.1 % ophthalmic drop 1 drop three times a day [Active]; Flonase 50 mcg/actuation Nasal spsn 1 spray 2 times per day [Active]; ipratropium-albuterol 0.5 mg-3 mg(2.5 mg base)/3 mL Inhl nebu 3 mL 4 times per day [Active]; Klor-Con 10 10 mEq Oral TbER 1 tab once daily [Active]; loratadine 10 mg Oral tab 1 tab once daily [Active]; Lyrica 75 mg Oral 1 cap 2 times per day for Postherpetic Neuralgia [Active]; Namenda 10 mg Oral tab 1 tab 2 times per day [Active]; simvastatin 10 mg Oral tab 1 tab once daily [Active]; Tylenol 325 mg Oral tab 2 tabs every 6 hours [Active]; valsartan-hydrochlorothiazide 160-12.5 mg Oral tab 1 tab once daily [Active]; - PMHx: 17:12 Aortic Stenosis; COPD; Dementia; heart murmur (benign); Hyperlipidemia; Hypertension; tl3 TIA; trigeminal neuralgia; - Immunization history:: Adult Immunizations unknown. - Social history:: Smoking status: unknown Patient/guardian denies using alcohol, street drugs, The patient lives in a senior care. - Ebola Screening: : No symptoms or risks identified at this time. - Family history:: not pertinent. - Hospitalizations: : No recent hospitalization is reported. Screenin:16 Abuse screen: Denies threats or abuse. Nutritional screening: No deficits noted. tl3 Tuberculosis screening: No symptoms or risk factors identified. Fall Risk Secondary diagnosis (15 points) dementia. Assessment: 17:16 Reassessment: No changes from previously documented assessment. tl3 18:15 Reassessment: pt remains unchanged from previously documented assessment, BP's continue sg to trend low, notified, awaiting new orders at this time. 18:42 Reassessment: at bedside discussing further treatment for pt at this time, sg awaiting new orders. 18:50 Reassessment: at bedside evaluating pt at this time. sg 19:45 Reassessment: Patient resting, eyes closed, respirations unlabored. Neuro: Level of lp1 Consciousness is arousal on verbal stimuli. Cardiovascular: Rhythm is sinus rhythm. Respiratory: Respiratory effort is even, Breath sounds with crackles bilaterally. GI: Abdomen is non-distended. : Figueredo in place to gravity drainage. Derm: Skin is fragile, is thin, Skin is dry, Skin is normal. 20:40 Reassessment: Patient returned from CT; BP low; Trendelenburg position applied; lp1 Provider notified; Patient resting, eyes closed, respirations unlabored, O2 sat low, responsive to painful stimuli; Venturi mast applied with improvement. 20:40 Neuro: Level of Consciousness is lethargic. lp1 21:30 Reassessment: No changes from previously documented assessment. Continuing to monitor lp1 BP. 22:30 Reassessment: Family aware of pending admission. Neuro: Level of Consciousness is lp1 lethargic. Respiratory: Respiratory effort is even. Vital Signs: 17:12 BP 96 / 56; Pulse 75; Resp 22; Pulse Ox 97% ; tl3 18:12 Weight 84.37 kg; dh3 18:16 Temp 98.6(A); ph 18:16 BP 94 / 40; Pulse 80; Resp 21; Pulse Ox 94% on 3 lpm NC; sg 18:44 BP 89 / 40; Pulse 79; Resp 20 S; Pulse Ox 94% on R/A; sg 19:25 BP 100 / 55; Pulse 72; Resp 24 S; Pulse Ox 94% on 3 lpm NC; sg 19:45 BP 100 / 81; Pulse 82; Resp 21; Temp 97.3(A); Pulse Ox 97% on 3 lpm NC; lp1 20:00 BP 95 / 54; Pulse 87; Resp 22; Pulse Ox 97% on 3 lpm NC; lp1 20:40 BP 73 / 39; Pulse 75; Resp 20; Pulse Ox 90% on 3 lpm NC; lp1 20:50 BP 67 / 42; Pulse 74; Resp 20; Pulse Ox 91% on 35% Venturi mask; lp1 20:55 BP 95 / 47; Pulse 74; Resp 21; Pulse Ox 91% on 40% Venturi mask; lp1 21:00 BP 148 / 55; Pulse 78; Resp 22; Pulse Ox 95% on 50% Venturi mask; lp1 21:05 BP 123 / 48; Pulse 75; Resp 20; Pulse Ox 95% on 50% Venturi mask; lp1 21:10 BP 108 / 47; Pulse 74; Resp 20; Pulse Ox 94% on 50% Venturi mask; lp1 21:20 BP 128 / 48; Pulse 79; Resp 19; Pulse Ox 94% on 50% Venturi mask; lp1 21:30 BP 137 / 72; Pulse 94; Resp 17; Temp 98.5(R); Pulse Ox 100% on 50% Venturi mask; lp1 21:45 BP 106 / 47; Pulse 78; Resp 20; Pulse Ox 98% on 50% Venturi mask; lp1 ED Course: 17:01 Patient arrived in ED. rv 17:06 Sona Castillo, RN is Primary Nurse. tl3 17:09 Triage completed. tl3 17:12 Arm band placed on left wrist. tl3 17:13 Carmelo Lowry MD is Attending Physician. gs 17:16 Patient has correct armband on for positive identification. tl3 17:16 airport attendant on. Pulse ox on. NIBP on. tl3 17:16 No provider procedures requiring assistance completed. EKG done, by ED staff. Initial tl3 Neb Treatment Given as ordered Unable to give instruction due to patient's physical barriers, family/caregiver not present. Inserted saline lock: 20 gauge in left antecubital area, using aseptic technique. Blood collected. 17:35 Yasmin Rust, RN is Primary Nurse. ph 17:36 Figueredo cath inserted, using sterile technique, 16 Fr., by me, balloon inflated, to tl3 gravity drainage, urine specimen collected. 17:55 Missed attempt(s): 22 gauge in right wrist. Bleeding controlled, band aid applied, dh3 catheter tip intact. 17:57 Second set of blood cultures drawn by me. Inserted saline lock: 20 gauge in right dh3 antecubital area, using aseptic technique. Blood collected. 18:08 Chest Single View XRAY In Process Unspecified. EDMS 19:17 Attending Physician role handed off by Carmelo Lowry MD ma2 19:17 Herb Hong MD is Attending Physician. ma2 19:28 Radiology exam delayed due to PT UNSTABLE PER [facility]. bq 19:29 Radiology exam delayed due to RN WILL CALL WHEN READY FOR CT. bq 20:18 CT Head Brain wo Cont In Process Unspecified. EDMS 21:00 Assisted provider with central line placement. Set up central line tray. Triple lumen lp1 line placed in right femoral. Line placed by Herb Hong MD Attempt made for central line insertion. 21:45 Patient admitted, IV remains in place. lp1 21:54 Herb Hong MD is Hospitalizing Provider. kl Administered Medications: 17:18 Drug: Albuterol - atroVENT (3:1) (2.5 mg - 0.5 mg) 3 ml Route: Nebulizer; tl3 17:45 Follow up: Response: No adverse reaction; No change in condition sg 17:40 Drug: NS 0.9% 1000 ml Route: IV; Rate: 1 bolus; Site: left antecubital; sg 18:00 Drug: Zosyn 3.375 grams Route: IVPB; Infused Over: 60 mins; Site: left antecubital; sg 19:30 Follow up: IV Status: Completed infusion; IV Intake: 100ml lp1 18:30 Drug: NS 0.9% 1000 ml Route: IV; Rate: 1 bolus; Site: right antecubital; sg 19:30 Follow up: IV Status: Completed infusion; IV Intake: 1000ml lp1 20:30 Drug: Lovenox 80 mg Route: Sub-Q; Site: left lower abdomen; lp1 21:30 Follow up: Response: No adverse reaction lp1 20:30 Drug: Aspirin Suppository 600 mg Route: AL; lp1 21:30 Follow up: Response: No adverse reaction lp1 20:55 Drug: D5-1/2 NS 1000 ml Route: IV; Rate: 100 ml/hr; Site: left forearm; lp1 21:43 Follow up: IV Status: Infusion continued upon admission lp1 20:55 Drug: Levophed (4 mg/250 mL D5W 4 mcg/min Route: IV; Rate: calculated rate; Site: left lp1 forearm; 21:44 Follow up: IV Status: Infusion continued upon admission lp1 Intake: 19:30 IV: 100ml; Total: 100ml. lp1 19:30 IV: 1000ml; Total: 1100ml. lp1 Outcome: 21:37 Decision to Hospitalize by Provider. ma2 21:45 critical lp1 21:45 Instructed on the need for admit. 22:08 Admitted to ICU accompanied by nurse, accompanied by tech, family with patient, via lp1 stretcher, room 1, with oxygen, on monitor, with chart, Report called to JARVIS Coreas 22:40 Patient left the ED. lp1 Signatures: Dispatcher [employer] EDMS Navya Andersen RN Bruce Sweeney RN Beverly Luna Laura, RN RN 1 Yasmin Rust RN RN Santiago, Bozena [facility] Carmelo Lowry MD MD Herb Hong MD MD ma2 Sona Castillo RN RN tl3 Ranjan Dobbs RN RN rv Corrections: (The following items were deleted from the chart) 23:03 23:02 Patient left the ED. lp1 lp1
--- NOTE | 2018-04-18 21:38 | EDPHYS ---
Physician Documentation [facility] Name: Dasha Brown Age: 87 yrs Sex: Female : 1930 Arrival Date: 04/18/2018 Time: 17:01 Bed 3 Private MD: ED Physician Herb Hong HPI: 04/18 20:05 This 87 yrs old Female presents to ER via EMS with complaints of Altered ma2 Mental Status. 20:08 The patient presents with decreased mental status. Onset: The symptoms/episode ma2 began/occurred gradually, 2 day(s) ago. Possible causes: sepsis. Associated signs and symptoms: Pertinent positives: shortness of breath, Pertinent negatives: agitation, blurred vision, confusion, diarrhea. Current symptoms: In the emergency department the patient's symptoms are unchanged from the initial presentation. Unable to obtain HPI due to altered mental status. The patient has experienced similar episodes in the past. Historical: - Allergies: 17:12 Lipitor; tl3 - Home Meds: 17:12 amlodipine 10 mg tab 1 tab once daily [Active]; Aricept 5 mg Oral tab 1 tab nightly tl3 [Active]; aspirin 81 mg Oral chew 1 tab once daily [Active]; clopidogrel 75 mg Oral tab 1 tab once daily [Active]; Combivent Respimat 20-100 mcg/actuation inhalation mist 1 puff 4 times per day [Active]; diclofenac sodium 0.1 % ophthalmic drop 1 drop three times a day [Active]; Flonase 50 mcg/actuation Nasal spsn 1 spray 2 times per day [Active]; ipratropium-albuterol 0.5 mg-3 mg(2.5 mg base)/3 mL Inhl nebu 3 mL 4 times per day [Active]; Klor-Con 10 10 mEq Oral TbER 1 tab once daily [Active]; loratadine 10 mg Oral tab 1 tab once daily [Active]; Lyrica 75 mg Oral 1 cap 2 times per day for Postherpetic Neuralgia [Active]; Namenda 10 mg Oral tab 1 tab 2 times per day [Active]; simvastatin 10 mg Oral tab 1 tab once daily [Active]; Tylenol 325 mg Oral tab 2 tabs every 6 hours [Active]; valsartan-hydrochlorothiazide 160-12.5 mg Oral tab 1 tab once daily [Active]; - PMHx: 17:12 Aortic Stenosis; COPD; Dementia; heart murmur (benign); Hyperlipidemia; Hypertension; tl3 TIA; trigeminal neuralgia; - Immunization history:: Adult Immunizations unknown. - Social history:: Smoking status: unknown Patient/guardian denies using alcohol, street drugs, The patient lives in a detention. - Ebola Screening: : No symptoms or risks identified at this time. - Family history:: not pertinent. - Hospitalizations: : No recent hospitalization is reported. ROS: 20:08 Neuro: Positive for altered mental status, Negative for gait disturbance, headache, ma2 loss of consciousness. 21:37 ENT: Negative for injury, pain, and discharge. ma2 Exam: 20:08 Cardiovascular: Regular rate and rhythm with a normal S1 and S2. No gallops, murmurs, ma2 or rubs. Normal PMI, no JVD. No pulse deficits. Respiratory: Lungs have equal breath sounds bilaterally, clear to auscultation and percussion. No rales, rhonchi or wheezes noted. No increased work of breathing, no retractions or nasal flaring. Abdomen/GI: Soft, non-tender, with normal bowel sounds. No distension or tympany. No guarding or rebound. No evidence of tenderness throughout. MS/ Extremity: Pulses equal, no cyanosis. Neurovascular intact. Full, normal range of motion. 20:08 Constitutional: The patient appears in no acute distress, non-diaphoretic, non-toxic. 20:08 Neuro: Orientation: unable to test. Vital Signs: 17:12 BP 96 / 56; Pulse 75; Resp 22; Pulse Ox 97% ; tl3 18:12 Weight 84.37 kg; dh3 18:16 Temp 98.6(A); ph 18:16 BP 94 / 40; Pulse 80; Resp 21; Pulse Ox 94% on 3 lpm NC; sg 18:44 BP 89 / 40; Pulse 79; Resp 20 S; Pulse Ox 94% on R/A; sg 19:25 BP 100 / 55; Pulse 72; Resp 24 S; Pulse Ox 94% on 3 lpm NC; sg 19:45 BP 100 / 81; Pulse 82; Resp 21; Temp 97.3(A); Pulse Ox 97% on 3 lpm NC; lp1 20:00 BP 95 / 54; Pulse 87; Resp 22; Pulse Ox 97% on 3 lpm NC; lp1 20:40 BP 73 / 39; Pulse 75; Resp 20; Pulse Ox 90% on 3 lpm NC; lp1 20:50 BP 67 / 42; Pulse 74; Resp 20; Pulse Ox 91% on 35% Venturi mask; lp1 20:55 BP 95 / 47; Pulse 74; Resp 21; Pulse Ox 91% on 40% Venturi mask; lp1 21:00 BP 148 / 55; Pulse 78; Resp 22; Pulse Ox 95% on 50% Venturi mask; lp1 21:05 BP 123 / 48; Pulse 75; Resp 20; Pulse Ox 95% on 50% Venturi mask; lp1 21:10 BP 108 / 47; Pulse 74; Resp 20; Pulse Ox 94% on 50% Venturi mask; lp1 21:20 BP 128 / 48; Pulse 79; Resp 19; Pulse Ox 94% on 50% Venturi mask; lp1 21:30 BP 137 / 72; Pulse 94; Resp 17; Temp 98.5(R); Pulse Ox 100% on 50% Venturi mask; lp1 21:45 BP 106 / 47; Pulse 78; Resp 20; Pulse Ox 98% on 50% Venturi mask; lp1 MDM: 17:37 Patient medically screened. gs 20:13 Differential Diagnosis: CVA, electrolyte abnormality, hypoglycemia, pneumonia, sepsis, ma2 UTI, volume depletion. ED course: . 21:30 Data reviewed: vital signs, nurses notes, lab test result(s). Counseling: I had a ma2 detailed discussion with the patient and/or guardian regarding: the historical points, exam findings, and any diagnostic results supporting the discharge/admit diagnosis, the presence of at least one elevated blood pressure reading (>120/80) during this emergency department visit. Response to treatment: the patient's symptoms have markedly improved after treatment. ED course: patient has UTI sepsis CTH wnl.. will admit to ICU, left voice note to Dr. Lai, attempted right femoral line with no success, will get picc team . 04/18 17:35 Order name: CPK 04/18 17:35 Order name: Basic Metabolic Panel 04/18 17:35 Order name: Blood Culture Adult (2) 04/18 17:35 Order name: CBC with Diff; Complete Time: 19:57 04/18 17:35 Order name: Lactate; Complete Time: 18:10 04/18 17:35 Order name: LFT's 04/18 17:35 Order name: Lipase; Complete Time: 19:57 / 17:35 Order name: Procalcitonin; Complete Time: 19:57 04/18 17:35 Order name: Protime (+inr); Complete Time: 18:10 04/18 17:35 Order name: Troponin (emerg Dept Use Only); Complete Time: 19:57 04/18 17:35 Order name: Urine Microscopic Only; Complete Time: 21:34 04/18 17:36 Order name: Creatine Phosphokinase; Complete Time: 19:57 [facility] 04/18 17:36 Order name: Basic Metabolic Panel; Complete Time: 19:57 [facility] 04/18 17:36 Order name: Liver (Hepatic) Function; Complete Time: 19:57 [facility] 04/18 17:35 Order name: Chest Single View XRAY; Complete Time: 19:57 04/18 17:42 Order name: Urine Dipstick--Ancillary (enter results); Complete Time: 21:34 lt1 04/18 18:07 Order name: CBC Smear Scan; Complete Time: 19:57 [facility] 04/18 18:18 Order name: ABG 04/18 18:18 Order name: ABG Arterial Blood Gas; Complete Time: 19:57 [facility] 04/18 18:25 Order name: CT Head Brain wo Cont; Complete Time: 21:34 04/18 20:24 Order name: Urine Culture [facility] 04/18 21:34 Order name: Troponin I ma2 04/18 17:35 Order name: Accucheck; Complete Time: 17:49 04/18 17:35 Order name: Cardiac monitoring; Complete Time: 17:48 04/18 17:35 Order name: EKG - Nurse/Tech; Complete Time: 17:47 04/18 17:35 Order name: IV Saline Lock - Large Bore; Complete Time: 17:47 04/18 17:35 Order name: Labs collected and sent; Complete Time: 17:47 04/18 17:35 Order name: O2 Per Protocol; Complete Time: 17:47 04/18 17:35 Order name: O2 Sat Monitoring; Complete Time: 17:47 gs 04/18 17:35 Order name: Urine Dipstick-Ancillary (obtain specimen); Complete Time: 17:48 gs Administered Medications: 17:18 Drug: Albuterol - atroVENT (3:1) (2.5 mg - 0.5 mg) 3 ml Route: Nebulizer; tl3 17:45 Follow up: Response: No adverse reaction; No change in condition sg 17:40 Drug: NS 0.9% 1000 ml Route: IV; Rate: 1 bolus; Site: left antecubital; sg 18:00 Drug: Zosyn 3.375 grams Route: IVPB; Infused Over: 60 mins; Site: left antecubital; sg 19:30 Follow up: IV Status: Completed infusion; IV Intake: 100ml lp1 18:30 Drug: NS 0.9% 1000 ml Route: IV; Rate: 1 bolus; Site: right antecubital; sg 19:30 Follow up: IV Status: Completed infusion; IV Intake: 1000ml lp1 20:30 Drug: Lovenox 80 mg Route: Sub-Q; Site: left lower abdomen; lp1 21:30 Follow up: Response: No adverse reaction lp1 20:30 Drug: Aspirin Suppository 600 mg Route: HI; lp1 21:30 Follow up: Response: No adverse reaction lp1 20:55 Drug: D5-1/2 NS 1000 ml Route: IV; Rate: 100 ml/hr; Site: left forearm; lp1 21:43 Follow up: IV Status: Infusion continued upon admission lp1 20:55 Drug: Levophed (4 mg/250 mL D5W 4 mcg/min Route: IV; Rate: calculated rate; Site: left lp1 forearm; 21:44 Follow up: IV Status: Infusion continued upon admission lp1 Disposition: 04/18/18 21:37 Hospitalization ordered by Herb Hong for Inpatient Admission. Preliminary diagnosis are Non-ST elevation (NSTEMI) myocardial infarction, Urinary tract infection, site not specified, Severe sepsis with septic shock. - Bed requested for Intensive Care Unit. - Status is Inpatient Admission. lp1 - Condition is Stable. - Problem is new. - Symptoms have improved. UTI on Admission? Yes Signatures: Dispatcher [employer] EDNavya Crouch RN RN kl Gay, Steven, RN RN sg Pena, Laura, RN RN lp1 Carmelo Lowry MD MD gs Alzahri, Mohammad, MD MD ma2 Sona Castillo RN RN tl3 Corrections: (The following items were deleted from the chart) 21:54 21:37 Hospitalization Ordered by for Inpatient Admission. Preliminary diagnosis is kl Non-ST elevation (NSTEMI) myocardial infarction; Urinary tract infection, site not specified; Severe sepsis with septic shock. Bed requested for Intensive Care Unit. Status is Inpatient Admission. Condition is Stable. Problem is new. Symptoms have improved. UTI on Admission? Yes. [facility] 23:02 21:54 04/18/2018 21:37 Hospitalization Ordered by Herb Hong MD for Inpatient lp1 Admission. Preliminary diagnosis is Non-ST elevation (NSTEMI) myocardial infarction; Urinary tract infection, site not specified; Severe sepsis with septic shock. Bed requested for Intensive Care Unit. Status is Inpatient Admission. Condition is Stable. Problem is new. Symptoms have improved. UTI on Admission? Yes. meliza
[2018-04-18] MEDS ORDERED: D5 0.45 NS 1,000 ML IV SCH (22:00)
[2018-04-18] MEDS ORDERED: NA CHLORIDE 0.9% 2,000 ML IV ONE (22:19)
[2018-04-18] MEDS ORDERED: VANCOMYCIN/NS 1 gm 1 GM/250 ML BAG IVPB SCH (23:00)
[2018-04-18] MEDS: NA CHLORIDE 0.9% 1,000 ML IV SCH (23:34)
[2018-04-18] MEDS: NA CHLORIDE 0.9% 250 ML IV PRN (23:34)
[2018-04-19] MEDS: NA CHLORIDE 0.9% 250 ML IV PRN ×2 (00:05→10:09)
[2018-04-19] MEDS ORDERED: VANCOMYCIN 1 GM/250 ML BAG ONE (00:18)
[2018-04-19] MEDS ORDERED: VANCOMYCIN 500 MG/VIAL ONE (00:29)
[2018-04-19] MEDS ORDERED: NA CHLORIDE 0.9% 500 ML ONE (00:40)
[2018-04-19] MEDS ORDERED: VANCOMYCIN 1.5 GM in NA CHLORIDE 0.9% 500 ML IV SCH (01:30)
[2018-04-19] MEDS: NA CHLORIDE 0.9% 1,000 ML IV SCH (04:23)
[2018-04-19 05:48] LABS: Potassium 3.1 mmol/L (3.5-5.1)
[2018-04-19 05:54] LABS: Absolute Lymphocytes (CBC) 1.2 K/uL (0.7-4.9); Absolute Monocytes 0.9 K/uL (0.1-1.3); Absolute Neutrophil 11.1 K/uL (1.8-8.0); Basophils % 0.1 % (0-1.3); Hematocrit 35.7 % (36.0-45.0); Lymphocytes % 8.7 % (15.3-44.8); MCH 28.6 pg (27.0-35.0); MPV 11.3 fL (7.6-11.3); RBC Red Blood Cell Count 4.15 M/uL (3.86-4.86)
[2018-04-19] MEDS ORDERED: D50W 25 GM/50 ML SYRINGE IV PRN (05:57)
[2018-04-19] MEDS ORDERED: GLUCAGON 1 MG/VIAL IM PRN (06:17)
[2018-04-19] MEDS: D5 0.45 NS 1,000 ML IV SCH ×2 (06:28→19:26)
--- NOTE | 2018-04-19 06:38 | RAD REPORT ---
EXAM DESCRIPTION: RAD - Chest Single View - 04/19/2018 1:57 am CLINICAL HISTORY: Device placement PICC line placement COMPARISON: none FINDINGS: A PICC line has been inserted with its tip in the mid superior vena cava. Large hiatal hernia. Mild right basilar atelectasis. . The heart is enlarged IMPRESSION: PICC line with its tip in the mid superior vena cava
[2018-04-19] MEDS ORDERED: INSULIN -REGULAR HUMAN 50 UNIT/0.5 ML ML SQ SCH (07:30)
[2018-04-19] MEDS: CEFTRIAXONE/SWI 1gm 1 GM/10 ML SYR IVP SCH (08:52)
[2018-04-19] MEDS ORDERED: VANCOMYCIN 500 MG in NA CHLORIDE 0.9% 100 ML IVPB ONE (09:00)
[2018-04-19] MEDS ORDERED: CEFTRIAXONE 1 GM/NS 50 ML 1 GM/50 ML BAG IV SCH (09:00)
--- NOTE | 2018-04-19 10:56 | P.HP ---
Certification for Inpatient Patient admitted to: Inpatient With expected LOS: >2 Midnights Patient will require the following post-hospital care: Usp Practitioner: I am a practitioner with admitting privileges, knowledge of patient current condition, hospital course, and medical plan of care. Services: Services provided to patient in accordance with Admission requirements found in Title 42 Section 412.3 of the Code of Federal Regulations Patient History Date of Service: 04/19/18 Primary Care Provider: Jeff Reason for admission: urosepsis History of Present Illness: Patient is a resident of [place]. She was admitted with a UTI and hypotension. Started on levophed in the ER. The patient also had an elevation in her creatine. Baseline is 1.2 She was 2.7 last night. She suffers from severe dementia and cannot give a good history. Most of the history is given by the nurse and the chart. The patients son is at the bedside. Have explained this to him. Allergies atorvastatin [From Lipitor] Allergy (Verified 04/13/18 20:52) unknown Home Medications: Acetaminophen [Tylenol] 2 tab PO Q6H PRN 04/14/18 Amlodipine Besylate [Norvasc] 10 mg PO DAILY 04/14/18 Aspirin Chewable [Aspirin Chewable*] 81 mg PO DAILY 04/14/18 Clopidogrel Bisulfate [Plavix*] 75 mg PO DAILY 04/14/18 Diclofenac 0.1% Ophth [Voltaren*] 1 drop EACH EYE TID 04/14/18 Donepezil [Aricept*] 10 mg PO BEDTIME 04/14/18 Fluticasone Propionate [Flonase Allergy Relief] 1 spray [place]YSON BID 04/14/18 Furosemide [Lasix*] 40 mg PO DAILY 04/14/18 Ipratropium/Albuterol Sulfate [Combivent Respimat 20-100 Mcg] 1 puff IH Q6H PRN 04/14/18 Loratadine [Claritin*] 10 mg PO DAILY 04/14/18 Memantine HCl [Namenda*] 10 mg PO BID 04/14/18 Potassium Oral Tab [Klor-Con 10 mEq Tab*] 10 meq PO DAILY 04/14/18 Pregabalin [Lyrica*] 75 mg PO BID 04/14/18 Simvastatin 10 mg PO DAILY 04/14/18 Valsartan/Hydrochlorothiazide [Valsartan-Hctz 160-12.5 mg Tab] 1 tab PO DAILY Benzonatate [Tessalon Perle] 200 mg PO Q8HP PRN 04/18/18 - Past Medical/Surgical History Has patient received pneumonia vaccine in the past: Yes Diabetic: No -: dementia -: HTN -: heart murmur -: aortic stenosis -: trigeminal neuralgia -: TIA -: gen muscle weakness -: allergic rhinitis -: COPD -: left leg venous stripping - Family History Mother -: Heart disease - Social History Smoking Status: Never smoker Alcohol use: No CD- Drugs: No Caffeine use: No Place of Residence: [facility] Review of Systems is unable to be obtained Physical Examination - Vital Signs Temperature: 98.5 F Blood Pressure: 91/38 Pulse: 63 Respirations: 24 Pulse Ox (%): 95 - Physical Exam General: In no apparent distress, Demented (is arousable to voice. Speaks well with the son.) HEENT: Atraumatic, PERRLA, Mucous membr. moist/pink, EOMI, Sclerae nonicteric Neck: Supple, 2+ carotid pulse no bruit, No LAD, Without JVD or thyroid abnormality Respiratory: Clear to auscultation bilaterally, Normal air movement Cardiovascular: Regular rate/rhythm, Normal S1 S2 Gastrointestinal: Normal bowel sounds, No tenderness Musculoskeletal: No tenderness Integumentary: No rashes Neurological: Normal gait, Normal speech, Normal strength at 5/5 x4 extr, Normal tone, Normal affect Lymphatics: No axilla or inguinal lymphadenopathy - Studies Laboratory Data (last 24 hrs) 04/18/18 17:10: PT 13.5 H, INR 1.14 04/18/18 17:10: WBC 12.9 H, Hgb 13.1, Hct 39.4, Plt Count 143 L 04/18/18 17:10: Sodium 142, Potassium 3.6, BUN 57 H, Creatinine 2.70 H D, Glucose 133 H, Total Bilirubin 0.4, AST 41 H, ALT 35, Alkaline Phosphatase 82, Lipase 74 Assessment and Plan - Problems (Diagnosis) (1) UTI (urinary tract infection) Current Visit: Yes Status: Acute Plan: Patient is improving with fluids and antibiotics. Gram -ve rods in the u/a. will await specific organism and antibiotic sensitivity. Will d/c Vancomycin. Qualifiers: Urinary tract infection type: acute cystitis Hematuria presence: without hematuria Qualified Code(s): N30.00 - Acute cystitis without hematuria (2) Sepsis Current Visit: Yes Status: Acute Plan: has resolved. Will given her 2 more boluss of d5 1/2 N. she got 500cc last night and came off the levophed. Will continue fluids and ceftriaxone. Get PT to start moving the patient in bed. Which should speed her recovery. Hopefully can leave the ICU tomorrow Qualifiers: Sepsis type: sepsis due to unspecified organism Qualified Code(s): A41.9 - Sepsis, unspecified organism (3) SILVER (acute kidney injury) Onset Date: 04/14/18 Current Visit: No Status: Acute Plan: Improving with fluids. her baseline is 1 to 1.2 Most likely prerenal (4) Dementia Onset Date: 04/14/18 Current Visit: No Status: Acute Plan: Son at the bedside. Would like her full code Qualifiers: Dementia type: Alzheimer's disease (5) Hiatal hernia Onset Date: 04/14/18 Current Visit: No Status: Acute Plan: have discussed this with her son. He is not sure how to proceed at this point. Which is fine. This is a senior care problem. Not trying to deal with this in the hospital. just start the discussion with the family Discharge Plan: [facility] Plan to discharge in: 48 Hours - Advance Directives Does patient have a Living Will: No Does patient have a Durable POA for Healthcare: No - Code Status/Comfort Care Code Status Assessed: No Code Status: Do Not Resuscitate Physician Review: Patient Assessed, Agree with Above Assessment and Plan (son agreed to the care) Critical Care: Yes Time Spent Managing Pts Care (In Minutes): 40
--- NOTE | 2018-04-19 11:32 | EKG ---
Test Date: 2018-04-18 Test Time: 17:07:02 Pre Algebra Teacher: MEASUREMENT RESULTS: Intervals: Rate: 78 DC: 182 QRSD: 78 QT: 400 QTc: 456 [place]: P: 36 DC: 182 QRS: 19 T: 68 INTERPRETIVE STATEMENTS: Normal sinus rhythm Minimal voltage criteria for LVH, may be normal variant Borderline ECG Compared to ECG 04/13/2018 14:59:00 Left ventricular hypertrophy now present Electronically Signed On 04-19-18 11:32:06 FARM MACHINE TENDER by Donal Nichols
[2018-04-19] MEDS: CLOPIDOGREL 75 MG TABLET PO SCH (12:35)
[2018-04-19] MEDS: ENOXAPARIN 30 MG/0.3 ML SQ SCH (17:17)
[2018-04-19] MEDS: DICLOFENAC NA OPTH SCH ×2 (19:54→20:10)
[2018-04-19] MEDS: OPTH OPTH SCH ×2 (19:54→20:10)
[2018-04-19] MEDS: KCL 20 MEQ/100 mL IVPB 20 MEQ/100 ML BAG IV SCH ×2 (19:57→21:20)
[2018-04-20 05:40] LABS: Absolute Lymphocytes (CBC) 1.1 K/uL (0.7-4.9); Absolute Monocytes 0.6 K/uL (0.1-1.3); Absolute Neutrophil 5.9 K/uL (1.8-8.0); Basophils % 0.3 % (0-1.3); Eosinophils % 0.9 % (0-4.4); Hematocrit 30.4 % (36.0-45.0); Lymphocytes % 14.8 % (15.3-44.8); MCH 29.3 pg (27.0-35.0); MCV 85.8 fL (80-100); MPV 11.2 fL (7.6-11.3); Monocytes % 7.6 % (3.3-12.3); RBC Red Blood Cell Count 3.55 M/uL (3.86-4.86)
[2018-04-20] MEDS: PANTOPRAZOLE 40MG TABLET PO SCH (07:30)
[2018-04-20] MEDS: D5 0.45 NS 1,000 ML IV SCH (08:40)
[2018-04-20] MEDS: CEFTRIAXONE/SWI 1gm 1 GM/10 ML SYR IVP SCH (08:40)
[2018-04-20] MEDS: CLOPIDOGREL 75 MG TABLET PO SCH (09:00)
[2018-04-20] MEDS: OPTH OPTH SCH ×3 (09:00→20:07)
[2018-04-20] MEDS: DICLOFENAC NA OPTH SCH ×3 (09:00→20:07)
[2018-04-20] MEDS: KCL 20 MEQ/100 mL IVPB 20 MEQ/100 ML BAG IV SCH ×3 (09:29→23:03)
--- NOTE | 2018-04-20 11:31 | P.PN ---
Subjective Date of Service: 04/20/18 Primary Care Provider: Jeff Chief Complaint: urosepsis Subjective: Improving (Patient sitting up and answering questions appropriately) Review of Systems 10-point ROS is otherwise unremarkable Physical Examination - Vital Signs Temperature: 98.4 F Blood Pressure: 138/47 Pulse: 63 Respirations: 27 Pulse Ox (%): 97 - Physical Exam General: Alert, In no apparent distress, Demented (mental status is much better than yesterday) HEENT: Atraumatic, PERRLA, EOMI Neck: Supple, JVD not distended Respiratory: Clear to auscultation bilaterally, Normal air movement Cardiovascular: Regular rate/rhythm, Normal S1 S2 Gastrointestinal: Normal bowel sounds, No tenderness Musculoskeletal: No tenderness Integumentary: No rashes Neurological: Normal speech, Normal tone, Normal affect Lymphatics: No axilla or inguinal lymphadenopathy Assessment & Plan - Problems (Diagnosis) (1) UTI (urinary tract infection) Onset Date: 04/20/18 Current Visit: Yes Status: Acute Plan: Patient is improving with fluids and antibiotics. Gram -ve rods in the u/a. will await specific organism and antibiotic sensitivity. Will d/c Vancomycin. stable to move to floors. Qualifiers: Urinary tract infection type: acute cystitis Hematuria presence: without hematuria Qualified Code(s): N30.00 - Acute cystitis without hematuria (2) Sepsis Onset Date: 04/20/18 Current Visit: Yes Status: Resolved Plan: has resolved. Will given her 2 more boluss of d5 1/2 N. she got 500cc last night and came off the levophed. Will continue fluids and ceftriaxone. Get PT to start moving the patient in bed. Which should speed her recovery. Hopefully can leave the ICU tomorrow Qualifiers: Sepsis type: sepsis due to unspecified organism Qualified Code(s): A41.9 - Sepsis, unspecified organism (3) SILVER (acute kidney injury) Onset Date: 04/14/18 Current Visit: No Status: Resolved Plan: Patient is back to baseline (4) Dementia Onset Date: 04/14/18 Current Visit: No Status: Acute Plan: failed a swallow evaluation. Can order a barium swallow Qualifiers: Dementia type: Alzheimer's disease (5) Hiatal hernia Onset Date: 04/14/18 Current Visit: No Status: Acute Plan: have discussed this with her son. He is not sure how to proceed at this point. Which is fine. 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 Not trying to deal with this in the hospital. just start the discussion with the family Discharge Plan: Senior Care Plan to discharge in: 48 Hours - Code Status/Comfort Care Code Status Assessed: No Code Status: Do Not Resuscitate Physician Review: Patient Assessed, Agree with Above Assessment and Plan (son agreed to the care) Critical Care: No Time Spent Managing Pts Care (In Minutes): 20
--- NOTE | 2018-04-20 12:52 | RAD REPORT ---
EXAM DESCRIPTION: RAD - Barium Swallow Modified - 04/20/2018 12:43 pm CLINICAL HISTORY: Cough, sepsis, possible aspiration, difficulty swallowing COMPARISON: None. TECHNIQUE: The patient was given liquid, semi-solid and solid forms of barium. Lateral view fluorosc opic imaging was performed in conjunction with speech pathology service. FINDINGS: Fluoro time was 2 minutes 36 seconds. There were 19 cine loop acquisitions obtained. Laryngeal penetration: Not cleared with teaspoon of thin, deep to the cords, likely aspiration. aspiration: cough, With nectar, upon inhalation of sneeze Moderate oral residue with puree. Moderate oral holding with pudding, honey, and nectar. Mild delayed swallow. IMPRESSION: Modified barium swallow as detailed above and on speech pathology report.
[2018-04-20] MEDS ORDERED: FUROSEMIDE 20 MG/ 2ML VIAL IV ONE (14:29)
[2018-04-20] MEDS: ENOXAPARIN 30 MG/0.3 ML SQ SCH (18:02)
[2018-04-20] MEDS ORDERED: VANCOMYCIN 1.5 GM in NA CHLORIDE 0.9% 500 ML IVPB SCH (21:00)
[2018-04-20] MEDS ORDERED: ARFORMOTEROL TARTRATE 15 MCG/2 ML VIAL.NEB ONE (23:59)
[2018-04-21] MEDS: KCL 20 MEQ/100 mL IVPB 20 MEQ/100 ML BAG IV SCH ×3 (00:58→13:56)
[2018-04-21] MEDS: CEFTRIAXONE/SWI 1gm 1 GM/10 ML SYR IVP SCH (08:18)
[2018-04-21] MEDS: CLOPIDOGREL 75 MG TABLET PO SCH (08:19)
[2018-04-21] MEDS: PANTOPRAZOLE 40MG TABLET PO SCH (08:19)
[2018-04-21] MEDS: OPTH OPTH SCH ×3 (08:38→20:56)
[2018-04-21] MEDS: DICLOFENAC NA OPTH SCH ×3 (08:38→20:56)
--- NOTE | 2018-04-21 10:06 | P.PN ---
Subjective Date of Service: 04/21/18 Primary Care Provider: Jeff Chief Complaint: urosepsis Subjective: Improving Review of Systems 10-point ROS is otherwise unremarkable Physical Examination - Vital Signs Temperature: 99.0 F Blood Pressure: 172/77 Pulse: 76 Respirations: 22 Pulse Ox (%): 95 - Physical Exam General: In no apparent distress, Demented HEENT: Atraumatic, PERRLA, EOMI Neck: Supple, JVD not distended Respiratory: Clear to auscultation bilaterally, Normal air movement Cardiovascular: Regular rate/rhythm, Normal S1 S2 Gastrointestinal: Normal bowel sounds, No tenderness Musculoskeletal: No tenderness Integumentary: No rashes Neurological: Normal speech, Normal tone, Normal affect Lymphatics: No axilla or inguinal lymphadenopathy - Studies Microbiology Data (last 24 hrs): 04/18/18 17:40 Clean Catch Urine [place] Count - Final >100,000 CFU/ML. 04/18/18 17:40 Clean Catch Urine - Final Escherichia Coli Assessment & Plan - Problems (Diagnosis) (1) UTI (urinary tract infection) Onset Date: 04/20/18 Current Visit: Yes Status: Acute Plan: Patient is improving with fluids and antibiotics. Gram -ve rods in the u/a. will await specific organism and antibiotic sensitivity. Will d/c Vancomycin. stable to move to floors. Qualifiers: Urinary tract infection type: acute cystitis Hematuria presence: without hematuria Qualified Code(s): N30.00 - Acute cystitis without hematuria (2) Sepsis Onset Date: 04/20/18 Current Visit: Yes Status: Resolved Plan: has resolved. Will given her 2 more boluss of d5 1/2 N. she got 500cc last night and came off the levophed. Will continue fluids and ceftriaxone. Get PT to start moving the patient in bed. Which should speed her recovery. Hopefully can leave the ICU tomorrow Qualifiers: Sepsis type: sepsis due to unspecified organism Qualified Code(s): A41.9 - Sepsis, unspecified organism (3) SILVER (acute kidney injury) Onset Date: 04/14/18 Current Visit: No Status: Resolved Plan: Patient is back to baseline (4) Dementia Onset Date: 04/14/18 Current Visit: No Status: Acute Plan: failed a swallow evaluation. Can order a barium swallow Qualifiers: Dementia type: Alzheimer's disease (5) Hiatal hernia Onset Date: 04/14/18 Current Visit: No Status: Acute Plan: have discussed this with her son. He is not sure how to proceed at this point. Which is fine. 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 Not trying to deal with this in the hospital. just start the discussion with the family Discharge Plan: Group Home Plan to discharge in: 24 Hours - Code Status/Comfort Care Code Status Assessed: No Code Status: Do Not Resuscitate Physician Review: Patient Assessed, Agree with Above Assessment and Plan (son agreed to the care) Critical Care: No Time Spent Managing Pts Care (In Minutes): 20
[2018-04-21 10:49] LABS: Magnesium 2.1 mg/dL (1.8-2.4); Potassium 3.4 mmol/L (3.5-5.1)
[2018-04-21] MEDS: ENOXAPARIN 30 MG/0.3 ML SQ SCH (16:46)
[2018-04-21] MEDS: POTASS/SODIUM PHOSPHATE 1 PKT POWD.PACK PO SCH ×4 (20:55→22:59)
[2018-04-21] MEDS ORDERED: KCL 20 MEQ/100 mL IVPB 20 MEQ/100 ML BAG IV SCH (23:00)
[2018-04-21] MEDS ORDERED: ARFORMOTEROL TARTRATE 15 MCG/2 ML VIAL.NEB NEB ONE (23:34)
[2018-04-22 05:45] LABS: Phosphorus 3.2 mg/dL (2.5-4.9); Potassium 3.9 mmol/L (3.5-5.1)
[2018-04-22] MEDS ORDERED: KCL 20 MEQ/100 mL IVPB 20 MEQ/100 ML BAG IV SCH (06:00)
[2018-04-22] MEDS: DICLOFENAC NA OPTH SCH (09:00)
[2018-04-22] MEDS: OPTH OPTH SCH (09:00)
[2018-04-22] MEDS: CEFTRIAXONE/SWI 1gm 1 GM/10 ML SYR IVP SCH (09:37)
[2018-04-22] MEDS: CLOPIDOGREL 75 MG TABLET PO SCH (09:37)
[2018-04-22] MEDS: PANTOPRAZOLE 40MG TABLET PO SCH (09:37)
--- NOTE | 2018-04-22 09:53 | P.DS ---
Admission Date: 04/18/18 Discharge Date: 04/22/18 Primary Care Provider: Jeff Disposition: TRANSFER TO HALFWAY Discharge Condition: FAIR Reason for Admission: urosepsis - Problems (1) UTI (urinary tract infection) Onset Date: 04/20/18 Current Visit: Yes Status: Acute Qualifiers: Urinary tract infection type: acute cystitis Hematuria presence: without hematuria Qualified Code(s): N30.00 - Acute cystitis without hematuria (2) Sepsis Onset Date: 04/20/18 Current Visit: Yes Status: Resolved Qualifiers: Sepsis type: sepsis due to unspecified organism Qualified Code(s): A41.9 - Sepsis, unspecified organism (3) SILVER (acute kidney injury) Onset Date: 04/14/18 Current Visit: No Status: Resolved (4) Dementia Onset Date: 04/14/18 Current Visit: No Status: Acute Qualifiers: Dementia type: Alzheimer's disease (5) Hiatal hernia Onset Date: 04/14/18 Current Visit: No Status: Acute Brief History of Present Illness: Patient is a resident of [place]. She was admitted with a UTI and hypotension. Started on levophed in the ER. The patient also had an elevation in her creatine. Baseline is 1.2 She was 2.7 last night. She suffers from severe dementia and cannot give a good history. Most of the history is given by the nurse and the chart. The patients son is at the bedside. Have explained this to him. Hospital Course: Patient presented with UTI and hypotension. Was started on levophed. However came off quickly. She was choking on her food. Was recomended purreed diet with thickened liquids. She is very weak. Pt was able to get her to sit at the bedside. She is my patient at [place]. We can continue the diet and PT there. Vital Signs/Physical Exam: Temp Pulse Resp BP Pulse Ox 98.1 F 62 18 177/77 H 96 04/22/18 08:00 04/22/18 08:00 04/22/18 08:00 04/22/18 08:00 04/22/18 08:00 General: Alert, In no apparent distress HEENT: Atraumatic, PERRLA, EOMI Neck: Supple, JVD not distended Respiratory: Clear to auscultation bilaterally, Normal air movement Cardiovascular: Regular rate/rhythm, Normal S1 S2 Gastrointestinal: Normal bowel sounds, No tenderness Musculoskeletal: No tenderness Integumentary: No rashes Neurological: Normal speech, Normal tone, Normal affect Lymphatics: No axilla or inguinal lymphadenopathy Laboratory Data at Discharge: WBC 7.7 K/uL (4.3-10.9) D 04/20/18 04:45 Hgb 10.4 g/dL (12.0-15.0) L 04/20/18 04:45 Hct 30.4 % (36.0-45.0) L 04/20/18 04:45 Plt Count 114 K/uL (152-406) L 04/20/18 04:45 PT 13.5 SECONDS (9.5-12.5) H 04/18/18 17:10 INR 1.14 04/18/18 17:10 Sodium 148 mmol/L (136-145) H 04/22/18 04:55 Potassium 3.9 mmol/L (3.5-5.1) 04/22/18 04:55 BUN 12 mg/dL (7-18) 04/22/18 04:55 Creatinine 0.70 mg/dL (0.55-1.3) 04/22/18 04:55 Glucose 81 mg/dL (74-106) 04/22/18 04:55 Phosphorus 3.2 mg/dL (2.5-4.9) D 04/22/18 04:55 Magnesium 2.1 mg/dL (1.8-2.4) 04/21/18 10:05 Total Bilirubin 0.4 mg/dL (0.2-1.0) 04/18/18 17:10 AST 41 U/L (15-37) H 04/18/18 17:10 ALT 35 U/L (12-78) 04/18/18 17:10 Alkaline Phosphatase 82 U/L (45-117) 04/18/18 17:10 Troponin I 0.07 ng/mL (0.0-0.045) H 04/19/18 04:10 Lipase 74 U/L (73-393) 04/18/18 17:10 Home Medications: Acetaminophen [Tylenol] 2 tab PO Q6H PRN 04/14/18 Amlodipine Besylate [Norvasc] 10 mg PO DAILY 04/14/18 Aspirin Chewable [Aspirin Chewable*] 81 mg PO DAILY 04/14/18 Clopidogrel Bisulfate [Plavix*] 75 mg PO DAILY 04/14/18 Diclofenac 0.1% Ophth [Voltaren*] 1 drop EACH EYE TID 04/14/18 Donepezil [Aricept*] 10 mg PO BEDTIME 04/14/18 Fluticasone Propionate [Flonase Allergy Relief] 1 spray ALLYSON BID 04/14/18 Furosemide [Lasix*] 40 mg PO DAILY 04/14/18 Ipratropium/Albuterol Sulfate [Combivent Respimat 20-100 Mcg] 1 puff IH Q6H PRN 04/14/18 Loratadine [Claritin*] 10 mg PO DAILY 04/14/18 Memantine HCl [Namenda*] 10 mg PO BID 04/14/18 Potassium Oral Tab [Klor-Con 10 mEq Tab*] 10 meq PO DAILY 04/14/18 Pregabalin [Lyrica*] 75 mg PO BID 04/14/18 Simvastatin 10 mg PO DAILY 04/14/18 Valsartan/Hydrochlorothiazide [Valsartan-Hctz 160-12.5 mg Tab] 1 tab PO DAILY Benzonatate [Tessalon Perle] 200 mg PO Q8HP PRN 04/18/18 Levofloxacin [Levaquin] 500 mg PO DAILY 7 Days #7 tablet 04/22/18 New Medications: Levofloxacin [Levaquin] 500 mg PO DAILY 7 Days #7 tablet Diet: pureed diet, honey thick liquids Activity: Fall precautions (continue PT to get the patient ambulatory) Time spent managing pt's care (in minutes): 30
== END 2018-04-22 16:04 | DRG 872 ==
LOC: ER 17:00 → ERHOLD 21:38 → 3RD-ICU 22:04 → 4TH 04-20 11:36
PROVIDERS: ADMIT Internal Medicine; ATTEND Internal Medicine
PROC: 02HV33Z Insertion of Infusion Device into Superior Vena Cava, Percutaneous Approach (ICD-10-PCS; principal; 2018-04-18)
PROC: B548ZZA Ultrasonography of Superior Vena Cava, Guidance (ICD-10-PCS; 2018-04-18)
DX: A41.9 Sepsis, unspecified organism (principal); N30.00 Acute cystitis without hematuria; N17.9 Acute kidney failure, unspecified; R65.20 Severe sepsis without septic shock; G30.9 Alzheimer's disease, unspecified; Z66 Do not resuscitate; F02.80 Dementia in other diseases classified elsewhere, unspecified severity, without behavioral disturbance, psychotic disturbance, mood disturbance, and anxiety; K44.9 Diaphragmatic hernia without obstruction or gangrene; I95.9 Hypotension, unspecified; Z88.8 Allergy status to other drugs, medicaments and biological substances; J44.9 Chronic obstructive pulmonary disease, unspecified; E78.5 Hyperlipidemia, unspecified; I10 Essential (primary) hypertension; Z86.73 Personal history of transient ischemic attack (TIA), and cerebral infarction without residual deficits
CPT/HCPCS: 36415; 51702; 70450; 71045; 74230; 80048; 80076; 80202; 81003; 81015; 82550; 82805; 82962; 83605; 83690; 83735; 84100; 84132; 84145; 84484; 85025; 85610; 87040; 87077; 87086; 87088; 87186; 92610; 92611; 93005; 94640; 96372; 97110; 97163; 97530; 99291; J0696; J1650; J1940; J2543; J3370; J7030; J7605

== ENCOUNTER 2018-09-28 12:09 | Observation (INO) | payer OTHER ==
[2018-09-28] MEDS ORDERED: NA CHLORIDE 0.9% 1,000 ML ONE (12:53)
[2018-09-28] MEDS ORDERED: CEFTRIAXONE/SWI 1gm 1 GM/10 ML SYR ONE (12:53)
--- NOTE | 2018-09-28 13:01 | RAD REPORT ---
EXAM DESCRIPTION: CT - Head Brain Wo Cont - 09/28/2018 12:41 pm CLINICAL HISTORY: Aphasia COMPARISON: CT head April 2018 TECHNIQUE: Axial 5 mm thick images of the head were obtained without IV contrast. All CT scans are performed using dose optimization technique as appropriate and may include automated exposure control or mA/KV adjustment according to patient size. FINDINGS: No intracranial hemorrhage, mass, edema or shift of mid-line structures. No acute infarcti on changes seen. No cortical edema or sulcal effacement. Patient has advanced atrophy and advanced ch ronic ischemic change. Ventricles are in proportion to the amount volume loss. Dense arterial tree ca lcifications are present. Mastoid air cells and visualized portions of the paranasal sinuses are clear. No acute bony findings. IMPRESSION: No hemorrhage is present. No acute cortical based infarction. Advanced atrophy and advanced chronic ischemic changes are present with ventricles in proportion. Fin dings are not substantially different from April 2018. Chronic ischemic changes can mask nonhemorrhagic acute infarction. MR brain followup can be obtained if there is ongoing concern for acute ischemia.
[2018-09-28 13:09] LABS: Absolute Lymphocytes (CBC) 1.3 K/uL (0.7-4.9); Absolute Monocytes 0.5 K/uL (0.1-1.3); Absolute Neutrophil 3.9 K/uL (1.8-8.0); Basophils % 0.7 % (0-1.3); Eosinophils % 4.9 % (0-4.4); Hematocrit 40.6 % (36.0-45.0); Lymphocytes % 21.2 % (15.3-44.8); MPV 11.1 fL (7.6-11.3); Monocytes % 8.6 % (3.3-12.3); RBC Red Blood Cell Count 4.68 M/uL (3.86-4.86)
[2018-09-28 13:20] LABS: Protime INR 1.04
[2018-09-28 13:29] LABS: Albumin 3.2 g/dL (3.4-5.0); Bilirubin Direct 0.1 mg/dL (0-0.2); Bilirubin Total 0.4 mg/dL (0.2-1.0); Magnesium 2.3 mg/dL (1.8-2.4); Potassium 3.7 mmol/L (3.5-5.1); Protein, Total 8.4 g/dL (6.4-8.2); Troponin (Emerg Dept Use Only) 0.02 ng/mL (0.0-0.045)
--- NOTE | 2018-09-28 13:33 | ER ---
Nurse's Notes [facility] Name: Dasha Brown Age: 88 yrs Sex: Female : 1930 Arrival Date: 09/28/2018 Time: 12:12 Bed 4 Private MD: Diagnosis: Cystitis, unspecified;Altered mental status, unspecified Presentation: 09/28 12:14 Presenting complaint: EMS states: [facility] staff report pt seems more confused than hb usual, lethargic and hypotensive today. Hx of dementia, AOx2 at baseline, BP 168/68, HR 60s, BGL 107. Transition of care: patient was not received from another setting of care. Onset of symptoms was September 28, 2018. Risk Assessment: Do you want to hurt yourself or someone else? Patient reports no desire to harm self or others. Initial Sepsis Screen: Does the patient meet any 2 criteria? No. Patient's initial sepsis screen is negative. Does the patient have a suspected source of infection? No. Patient's initial sepsis screen is negative. Care prior to arrival: None. 12:14 Method Of Arrival: EMS: [facility] 12:14 Acuity: CY 2 hb Historical: - Allergies: 12:20 Lipitor; hb - Home Meds: 12:20 amlodipine 10 mg tab 1 tab once daily [Active]; Aricept 5 mg Oral tab 1 tab nightly hb [Active]; aspirin 81 mg Oral tab 1 tab once daily [Active]; clopidogrel 75 mg Oral tab 1 tab once daily [Active]; Combivent Respimat 20-100 mcg/actuation inhalation mist 1 puff 4 times per day [Active]; diclofenac sodium 0.1 % ophthalmic drop 1 drop three times a day [Active]; Flonase 50 mcg/actuation Nasal spsn 1 spray 2 times per day [Active]; ipratropium-albuterol 0.5 mg-3 mg(2.5 mg base)/3 mL Inhl nebu 3 mL 4 times per day [Active]; Klor-Con 10 10 mEq Oral TbER 1 tab once daily [Active]; loratadine 10 mg Oral tab 1 tab once daily [Active]; Lyrica 75 mg Oral 1 cap 2 times per day for Postherpetic Neuralgia [Active]; Namenda 10 mg Oral tab 1 tab 2 times per day [Active]; simvastatin 10 mg Oral tab 1 tab once daily [Active]; Tylenol 325 mg Oral tab 2 tabs every 6 hours [Active]; valsartan-hydrochlorothiazide 160-12.5 mg Oral tab 1 tab once daily [Active]; - PMHx: 12:20 Aortic Stenosis; COPD; Dementia; heart murmur (benign); Hyperlipidemia; Hypertension; hb TIA; trigeminal neuralgia; - Immunization history:: Adult Immunizations up to date. - Social history:: Smoking status: Patient/guardian denies using tobacco, Patient/guardian denies using alcohol, street drugs, The patient lives with family. - Ebola Screening: : No symptoms or risks identified at this time. - Family history:: not pertinent. Screenin:22 Abuse screen: Denies threats or abuse. Denies injuries from another. Nutritional hb screening: No deficits noted. Tuberculosis screening: No symptoms or risk factors identified. Fall Risk Total Stephenson Fall Scale indicates High Risk Score (45 or more points). Fall prevention measures have been instituted. Side Rails Up X 2 Frequent Obs/Assessments Occuring As available patient and family educated on Fall Prevention Program and Strategies. Assessment: 12:32 General: Appears in no apparent distress. Behavior is calm, cooperative. Pain: Denies hb pain. Neuro: Level of Consciousness is awake, alert, obeys commands, Oriented to person, place, time, situation. Cardiovascular: Capillary refill < 3 seconds Patient's skin is warm and dry. Respiratory: Airway is patent Respiratory effort is even, unlabored, Respiratory pattern is regular, symmetrical, Breath sounds are clear bilaterally. GI: No signs and/or symptoms were reported involving the gastrointestinal system. : No signs and/or symptoms were reported regarding the genitourinary system. EENT: No signs and/or symptoms were reported regarding the EENT system. Derm: No signs and/or symptoms reported regarding the dermatologic system. Skin is intact, is healthy with good turgor, Skin is pink, warm \T\ dry. Musculoskeletal: No signs and/or symptoms reported regarding the musculoskeletal system. 13:23 Reassessment: Brief changed, small amount of urinary incontinence noted. Urine sample ss obtained at this time VIA straight cath. Pt tolerated well. Warm blanket given. Awaiting results. 14:00 Reassessment: Patient appears in no apparent distress at this time. Patient and/or hb family updated on plan of care and expected duration. Pain level reassessed. Patient is alert, oriented x 3, equal unlabored respirations, skin warm/dry/pink. Vital Signs: 12:13 BP 156 / 49; Pulse 64; Resp 17; Temp 98.2; Pulse Ox 98% on 2 lpm NC; Weight 76.2 kg; hb Height 5 ft. 7 in. (170.18 cm); Pain 0/10; 13:00 BP 128 / 48; Pulse 60; Resp 15; Pulse Ox 98% on R/A; ss 14:18 BP 121 / 45; Pulse 61; Resp 16; Temp 98.2; Pulse Ox 97% on R/A; Pain 0/10; ss 12:13 Body Mass Index 26.31 (76.20 kg, 170.18 cm) hb ED Course: 12:12 Patient arrived in ED. hb 12:15 Herb Hong MD is Attending Physician. ma2 12:16 Triage completed. hb 12:17 Arm band placed on. hb 12:22 Patient has correct armband on for positive identification. Placed in gown. Bed in low hb position. Call light in reach. Side rails up X2. 12:29 Marga Olivares, RN is Primary Nurse. hb 12:30 EKG done, by ED staff, reviewed by Herb Hong MD. jb1 12:41 CT Head Brain wo Cont In Process Unspecified. EDMS 13:19 XRAY Chest (1 view) In Process Unspecified. EDMS 13:22 Straight cath inserted, using sterile technique, 16 Fr. Specimen obtained. Returned ss clear yellow urine. Patient tolerated well. Patient maintains SpO2 saturation greater than 95% on room air. 13:31 Jackson Trejo MD is Hospitalizing Provider. ma2 13:44 Justin Aguilar MD is Hospitalizing Provider. ma2 15:00 No provider procedures requiring assistance completed. Patient admitted, IV remains in hb place. Administered Medications: 13:09 Drug: NS 0.9% 1000 ml Route: IV; Rate: 1 bolus; Site: left antecubital; hb 13:32 Drug: Rocephin 1 grams Route: IV; Rate: calculated rate; Site: left antecubital; hb Outcome: 13:31 Decision to Hospitalize by Provider. ma2 15:00 Admitted to Tele accompanied by tech, via stretcher, with chart. hb 15:00 Condition: stable 15:00 Instructed on the need for admit. 15:11 Patient left the ED. hb Signatures: Dispatcher [employer] Luis Angel Pond Shelby, RN RN ss Baxter, Heather, RN RN Herb Hong MD MD ma2
--- NOTE | 2018-09-28 13:33 | EDPHYS ---
Physician Documentation [facility] Name: Dasha Brown Age: 88 yrs Sex: Female : 1930 Arrival Date: 09/28/2018 Time: 12:12 Bed 4 Private MD: ED Physician Herb Hong HPI: 09/28 13:23 This 88 yrs old Female presents to ER via EMS with complaints of Altered ma2 Mental Status. 13:23 The patient presents with decreased mental status. Onset: The symptoms/episode ma2 began/occurred gradually, 3 day(s) ago. Possible causes: head injury, sepsis. Associated signs and symptoms: Pertinent negatives: agitation, blurred vision, diaphoresis, dizziness. Current symptoms: In the emergency department the patient's symptoms are unchanged from the initial presentation. Unable to obtain HPI due to altered mental status. The patient has experienced similar episodes in the past. Historical: - Allergies: 12:20 Lipitor; hb - Home Meds: 12:20 amlodipine 10 mg tab 1 tab once daily [Active]; Aricept 5 mg Oral tab 1 tab nightly hb [Active]; aspirin 81 mg Oral tab 1 tab once daily [Active]; clopidogrel 75 mg Oral tab 1 tab once daily [Active]; Combivent Respimat 20-100 mcg/actuation inhalation mist 1 puff 4 times per day [Active]; diclofenac sodium 0.1 % ophthalmic drop 1 drop three times a day [Active]; Flonase 50 mcg/actuation Nasal spsn 1 spray 2 times per day [Active]; ipratropium-albuterol 0.5 mg-3 mg(2.5 mg base)/3 mL Inhl nebu 3 mL 4 times per day [Active]; Klor-Con 10 10 mEq Oral TbER 1 tab once daily [Active]; loratadine 10 mg Oral tab 1 tab once daily [Active]; Lyrica 75 mg Oral 1 cap 2 times per day for Postherpetic Neuralgia [Active]; Namenda 10 mg Oral tab 1 tab 2 times per day [Active]; simvastatin 10 mg Oral tab 1 tab once daily [Active]; Tylenol 325 mg Oral tab 2 tabs every 6 hours [Active]; valsartan-hydrochlorothiazide 160-12.5 mg Oral tab 1 tab once daily [Active]; - PMHx: 12:20 Aortic Stenosis; COPD; Dementia; heart murmur (benign); Hyperlipidemia; Hypertension; hb TIA; trigeminal neuralgia; - Immunization history:: Adult Immunizations up to date. - Social history:: Smoking status: Patient/guardian denies using tobacco, Patient/guardian denies using alcohol, street drugs, The patient lives with family. - Ebola Screening: : No symptoms or risks identified at this time. - Family history:: not pertinent. ROS: 13:23 All other systems are negative. ma2 13:23 Unable to obtain ROS due to altered mental status. 13:31 Constitutional: Negative for fever, chills, and weight loss. ma2 Exam: 13:23 Constitutional: This is a well developed, well nourished patient who is awake, alert, ma2 and in no acute distress. Chest/axilla: Normal chest wall appearance and motion. Nontender with no deformity. No lesions are appreciated. Cardiovascular: Regular rate and rhythm with a normal S1 and S2. No gallops, murmurs, or rubs. Normal PMI, no JVD. No pulse deficits. Respiratory: Lungs have equal breath sounds bilaterally, clear to auscultation and percussion. No rales, rhonchi or wheezes noted. No increased work of breathing, no retractions or nasal flaring. Abdomen/GI: Soft, non-tender, with normal bowel sounds. No distension or tympany. No guarding or rebound. No evidence of tenderness throughout. MS/ Extremity: Pulses equal, no cyanosis. Neurovascular intact. Full, normal range of motion. 13:23 Neuro: Orientation: unable to test, the patient has a history of dementia, Mentation: slow to respond, sleepy, Memory: baseline dementia , Cranial nerves: grossly normal, Cerebellar function: unable to test, Motor: is normal, Gait: unable to assess. Vital Signs: 12:13 BP 156 / 49; Pulse 64; Resp 17; Temp 98.2; Pulse Ox 98% on 2 lpm NC; Weight 76.2 kg; hb Height 5 ft. 7 in. (170.18 cm); Pain 0/10; 13:00 BP 128 / 48; Pulse 60; Resp 15; Pulse Ox 98% on R/A; ss 14:18 BP 121 / 45; Pulse 61; Resp 16; Temp 98.2; Pulse Ox 97% on R/A; Pain 0/10; ss 12:13 Body Mass Index 26.31 (76.20 kg, 170.18 cm) hb MDM: 12:15 Patient medically screened. [facility] 13:23 Differential Diagnosis: CVA, electrolyte abnormality, hypoglycemia, intracranial bleed, ma2 UTI, volume depletion. Data reviewed: vital signs, nurses notes. 13:30 Counseling: I had a detailed discussion with the patient and/or guardian regarding: the [facility] historical points, exam findings, and any diagnostic results supporting the discharge/admit diagnosis, the presence of at least one elevated blood pressure reading (>120/80) during this emergency department visit, the need for further work-up and treatment in the hospital. Response to treatment: the patient's symptoms have markedly improved after treatment. 13:50 ED course: discussed w dr. vazquez . [facility] 09/28 12:28 Order name: Basic Metabolic Panel; Complete Time: 13:43 [facility] 09/28 12:28 Order name: CBC with Diff; Complete Time: 13:23 [facility] 09/28 12:28 Order name: LFT's; Complete Time: 13:43 [facility] 09/28 12:28 Order name: Magnesium; Complete Time: 13:43 [facility] 09/28 12:28 Order name: NT PRO-BNP; Complete Time: 13:43 [facility] 09/28 12:28 Order name: PT-INR; Complete Time: 13:23 [facility] 09/28 12:28 Order name: Troponin (emerg Dept Use Only); Complete Time: 13:43 [facility] 09/28 13:27 Order name: Urine Microscopic Only 09/28 13:48 Order name: Urine Culture [facility] 09/28 13:50 Order name: Comprehensive Metabolic Panel [facility] 09/28 13:50 Order name: Comprehensive Metabolic Panel [facility] 09/28 13:50 Order name: Troponin I [facility] 09/28 13:50 Order name: Troponin I [facility] 09/28 13:51 Order name: Troponin I [facility] 09/28 12:28 Order name: XRAY Chest (1 view) [facility] 09/28 12:28 Order name: EKG; Complete Time: 12:31 [facility] 09/28 12:28 Order name: Cardiac monitoring; Complete Time: 12:32 [facility] 09/28 12:28 Order name: EKG - Nurse/Tech; Complete Time: 12:32 [facility] 09/28 12:28 Order name: IV Saline Lock; Complete Time: 13:09 [facility] 09/28 12:28 Order name: Labs collected and sent; Complete Time: 13:09 [facility] 09/28 12:28 Order name: O2 Per Protocol; Complete Time: 12:32 [facility] 09/28 12:28 Order name: O2 Sat Monitoring; Complete Time: 12:32 [facility] 09/28 12:28 Order name: CT Head Brain wo Cont; Complete Time: 13:23 [facility] 09/28 12:28 Order name: Urine Dipstick-Ancillary (obtain specimen); Complete Time: 13:22 [facility] 09/28 13:51 Order name: CONS Pharmacy Consult [facility] 09/28 13:51 Order name: Regular EDME 09/28 13:56 Order name: Urine Dipstick--Ancillary (enter results) 09/28 14:42 Order name: Urine Dipstick-Ancillary EDME Administered Medications: 13:09 Drug: NS 0.9% 1000 ml Route: IV; Rate: 1 bolus; Site: left antecubital; hb 13:32 Drug: Rocephin 1 grams Route: IV; Rate: calculated rate; Site: left antecubital; hb Disposition: 09/28/18 13:31 Hospitalization ordered by Justin Vazquez for Inpatient Admission. Preliminary diagnosis are Cystitis, unspecified, Altered mental status, unspecified. - Bed requested for Telemetry/MedSurg (Inpatient). - Status is Inpatient Admission. hb - Condition is Stable. - Problem is new. - Symptoms are unchanged. UTI on Admission? Yes Signatures: Dispatcher [facility] Adelaida Aquino RN RN Marga Olivares RN RN Herb Hong MD MD ma2 Corrections: (The following items were deleted from the chart) 13:44 13:31 Hospitalization Ordered by Jackson Trejo MD for Inpatient Admission. Preliminary ma2 diagnosis is Cystitis, unspecified; Altered mental status, unspecified. Bed requested for Telemetry/MedSurg (Inpatient). Status is Inpatient Admission. Condition is Stable. Problem is new. Symptoms are unchanged. UTI on Admission? No. ma2 13:58 13:44 09/28/2018 13:31 Hospitalization Ordered by Justin Vazquez MD for Inpatient dw Admission. Preliminary diagnosis is Cystitis, unspecified; Altered mental status, unspecified. Bed requested for Telemetry/MedSurg (Inpatient). Status is Inpatient Admission. Condition is Stable. Problem is new. Symptoms are unchanged. UTI on Admission? Yes. ma2 15:11 13:58 09/28/2018 13:31 Hospitalization Ordered by Justin Vazquez MD for Inpatient hb Admission. Preliminary diagnosis is Cystitis, unspecified; Altered mental status, unspecified. Bed requested for Telemetry/MedSurg (Inpatient). Status is Inpatient Admission. Condition is Stable. Problem is new. Symptoms are unchanged. UTI on Admission? Yes. dw
[2018-09-28 13:45] LABS: Urine Bacteria >50 /HPF (<20); Urine Culture Reflex Order REFLEXED; Urine RBC <5 /HPF (NONE SEEN)
--- NOTE | 2018-09-28 13:51 | RAD REPORT ---
EXAM DESCRIPTION: RAD - Chest Single View - 09/28/2018 1:19 pm CLINICAL HISTORY: Lethargy, dementia, transient alteration of awareness, COPD COMPARISON: April 2018 TECHNIQUE: AP portable chest image was obtained 1315 hours . FINDINGS: Chronic interstitial lung pattern is present similar or slightly less pronounced than prio r imaging. Heart size is upper normal. Patient has a known large hiatal hernia in the medial right ponce ng base. No vascular engorgement. No measurable pleural effusion and no pneumothorax. No acute bony a bnormality seen. No acute aortic findings suspected. IMPRESSION: Chronic interstitial lung disease with no acute cardiopulmonary finding seen.
[2018-09-28] MEDS ORDERED: D50W 25 GM/50 ML SYRINGE IV PRN (13:56)
[2018-09-28] MEDS ORDERED: GLUCAGON 1 MG/VIAL IM PRN (13:56)
[2018-09-28 14:42] LABS: Urine Blood TRACE (NEG); Urine Glucose NEGATIVE (NEG); Urine Protein NEGATIVE (NEG); Urine Specific Gravity 1.015 (1.005-1.030)
[2018-09-28] MEDS: D5 0.9 NS 1,000 ML IV SCH (15:29)
[2018-09-28] MEDS: INSULIN -REGULAR HUMAN 50 UNIT/0.5 ML ML SQ SCH ×2 (16:30→21:00)
[2018-09-28] MEDS: CEFTRIAXONE/SWI 1gm 1 GM/10 ML SYR IVP SCH (21:20)
[2018-09-29] MEDS: D5 0.9 NS 1,000 ML IV SCH ×3 (02:28→12:56)
[2018-09-29 06:07] LABS: Absolute Lymphocytes (CBC) 1.4 K/uL (0.7-4.9); Absolute Monocytes 0.5 K/uL (0.1-1.3); Absolute Neutrophil 3.1 K/uL (1.8-8.0); Basophils % 0.6 % (0-1.3); Eosinophils % 3.9 % (0-4.4); Hematocrit 34.1 % (36.0-45.0); Lymphocytes % 27.8 % (15.3-44.8); MPV 11.3 fL (7.6-11.3); RBC Red Blood Cell Count 3.93 M/uL (3.86-4.86)
[2018-09-29 06:20] LABS: Albumin 2.5 g/dL (3.4-5.0); Bilirubin Total 0.2 mg/dL (0.2-1.0); Potassium 3.5 mmol/L (3.5-5.1); Protein, Total 6.7 g/dL (6.4-8.2)
[2018-09-29] MEDS: INSULIN -REGULAR HUMAN 50 UNIT/0.5 ML ML SQ SCH ×2 (07:30→11:30)
[2018-09-29] MEDS: CEFTRIAXONE/SWI 1gm 1 GM/10 ML SYR IVP SCH (07:53)
--- NOTE | 2018-09-29 07:59 | EKG ---
Test Date: 2018-09-28 Test Time: 12:29:35 Kick Press Setter: MIGNON MEASUREMENT RESULTS: Intervals: Rate: 61 WV: 206 QRSD: 80 QT: 480 QTc: 483 [place]wey: P: 78 WV: 206 QRS: 15 T: 68 INTERPRETIVE STATEMENTS: Normal sinus rhythm Cannot rule out Anterior infarct, age undetermined Abnormal ECG Compared to ECG 04/18/2018 17:07:02 Myocardial infarct finding now present Left ventricular hypertrophy no longer present Electronically Signed On 09-29-18 07:57:21 CDT by Jayesh Weir
--- NOTE | 2018-09-29 09:37 | P.SSS ---
Patient History Date of Service: 09/29/18 Primary Care Provider: Jeff Reason for admission: UTI, acute on chronic renal failure History of Present Illness: Patient lives in the [facility]. Where I see here. Has a history of dementia, large hiatial hernia, htn. She was sent for lower baseline mental status. Had a bp of 77/58 in [place]. She was sent to the ER. Patient is not able to give a good history due to her dementia. She was found to have a UTI in the ER. She also had an elevated creatinine in the 1.6 range. Her baseline is normal between 1-1.2 She was there fore admitted for IV fluids. Allergies atorvastatin [From Lipitor] Allergy (Verified 04/13/18 20:52) unknown Home Medications: Acetaminophen [Tylenol] 2 tab PO Q6H PRN 04/14/18 Amlodipine Besylate [Norvasc] 10 mg PO DAILY 04/14/18 Aspirin Chewable [Aspirin Chewable*] 81 mg PO DAILY 04/14/18 Clopidogrel Bisulfate [Plavix*] 75 mg PO DAILY 04/14/18 Diclofenac 0.1% Ophth [Voltaren*] 1 drop EACH EYE TID 04/14/18 Donepezil [Aricept*] 10 mg PO BEDTIME 04/14/18 Fluticasone Propionate [Flonase Allergy Relief] 1 spray ALLYSON BID 04/14/18 Furosemide [Lasix*] 40 mg PO DAILY 04/14/18 Ipratropium/Albuterol Sulfate [Combivent Respimat 20-100 Mcg] 1 puff IH Q6H PRN 04/14/18 Loratadine [Claritin*] 10 mg PO DAILY 04/14/18 Memantine HCl [Namenda*] 10 mg PO BID 04/14/18 Potassium Oral Tab [Klor-Con 10 mEq Tab*] 10 meq PO DAILY 04/14/18 Pregabalin [Lyrica*] 75 mg PO BID 04/14/18 Simvastatin 10 mg PO DAILY 04/14/18 Valsartan/Hydrochlorothiazide [Valsartan-Hctz 160-12.5 mg Tab] 1 tab PO DAILY Benzonatate [Tessalon Perle] 200 mg PO Q8HP PRN 04/18/18 levoFLOXacin [Levaquin*] 500 mg PO DAILY 7 Days #7 tab 09/29/18 - Past Medical/Surgical History Diabetic: No -: dementia -: HTN -: heart murmur -: aortic stenosis -: trigeminal neuralgia -: TIA -: gen muscle weakness -: allergic rhinitis -: COPD -: left leg venous stripping - Family History Mother -: Heart disease - Social History Smoking Status: Never smoker Alcohol use: No CD- Drugs: No Caffeine use: Yes Place of Residence: [facility] Review of Systems is unable to be obtained (dementia, she answer appropriately. However not sure if can reliable report symptoms.) Physical Examination - Vital Signs Temperature: 98.4 F Blood Pressure: 117/56 Pulse: 59 Respirations: 18 Pulse Ox (%): 90 - Physical Exam General: Alert, In no apparent distress (Having breakfast, son in the room) HEENT: Atraumatic, PERRLA, Mucous membr. moist/pink, EOMI, Sclerae nonicteric Neck: Supple, 2+ carotid pulse no bruit, No LAD, Without JVD or thyroid abnormality Respiratory: Clear to auscultation bilaterally, Normal air movement Cardiovascular: Regular rate/rhythm, Normal S1 S2 Gastrointestinal: Normal bowel sounds, No tenderness Musculoskeletal: No tenderness Integumentary: No rashes Neurological: Normal gait, Normal speech, Normal strength at 5/5 x4 extr, Normal tone, Normal affect Lymphatics: No axilla or inguinal lymphadenopathy - Studies Laboratory Data (last 24 hrs) 09/28/18 13:03: PT 12.3, INR 1.04 09/28/18 13:03: WBC 6.0, Hgb 13.4, Hct 40.6, Plt Count 122 L 09/28/18 13:03: Sodium 144, Potassium 3.7, BUN 40 H, Creatinine 1.66 H, Glucose 90, Magnesium 2.3, Total Bilirubin 0.4, AST 30, ALT 30, Alkaline Phosphatase 78 - Diagnosis (Problem(s)) (1) UTI (urinary tract infection) Onset Date: 04/20/18 Current Visit: No Status: Acute Plan: Gm negative rods in the initial culture report. Will discharge her on oral levaquin Qualifiers: Urinary tract infection type: acute cystitis Hematuria presence: without hematuria Qualified Code(s): N30.00 - Acute cystitis without hematuria (2) SILVER (acute kidney injury) Onset Date: 04/14/18 Current Visit: No Status: Resolved Plan: She is recovering with Fluids. Is tolerating PO. No need for a renal consult. (3) Dementia Onset Date: 04/14/18 Current Visit: No Status: Acute Plan: will return her to [place] she is at her baseline per her Son Qualifiers: Dementia type: Alzheimer's disease - Disposition Disposition: ROUTINE DISCHARGE Condition: GOOD Diet: soft (Patient may be able to tolerate some solids. Will do a swallow eval at [place].) Activity: Ad raphael Physician Review: Patient Assessed, Agree with Above Assessment and Plan (son did) Critical Care: No Time Spent Managing Pts Care (In Minutes): 30
[2018-09-29] MEDS ORDERED: MEMANTINE HCL 10 MG TABLET PO SCH (21:00)
[2018-09-30] MEDS ORDERED: VALSARTAN 80 MG TAB PO SCH (09:00)
[2018-09-30] MEDS ORDERED: hydroCHLOROthiazide 12.5 MG CAP PO SCH (09:00)
[2018-09-30] MEDS ORDERED: HYDROCHLOROTHIAZIDE PO SCH (09:00)
[2018-09-30] MEDS ORDERED: VALSARTAN PO SCH (09:00)
[2018-09-30] MEDS ORDERED: [UNRECOGNIZED DRUG - OTHER] PO SCH (09:00)
== END 2018-09-29 15:40 ==
LOC: ER 12:09 → INTOOBSV 13:49 → ERHOLD 13:49 → 4TH 14:35
PROVIDERS: ADMIT Internal Medicine; ATTEND Internal Medicine
DX: N30.00 Acute cystitis without hematuria (principal); K44.9 Diaphragmatic hernia without obstruction or gangrene; G30.9 Alzheimer's disease, unspecified; F02.80 Dementia in other diseases classified elsewhere, unspecified severity, without behavioral disturbance, psychotic disturbance, mood disturbance, and anxiety; N17.9 Acute kidney failure, unspecified; I10 Essential (primary) hypertension; R94.31 Abnormal electrocardiogram [ECG] [EKG]; I35.0 Nonrheumatic aortic (valve) stenosis; J44.9 Chronic obstructive pulmonary disease, unspecified; E78.5 Hyperlipidemia, unspecified; G50.0 Trigeminal neuralgia; Z79.82 Long term (current) use of aspirin; Z79.899 Other long term (current) drug therapy; Z86.73 Personal history of transient ischemic attack (TIA), and cerebral infarction without residual deficits
CPT/HCPCS: 93005; 87088; 85025 ×2; 87086; 80048; 36415; 83735; 85610; 82962 ×3; 80076; 87077; 87186; 84484 ×3; 80053; 83880; 70450; 71045; 51702; 96374; 99285; J0696 ×3; J7030; G0378 ×2; 81003; 81015

== ENCOUNTER 2018-10-26 12:47 | Inpatient (IN) | payer OTHER ==
[2018-10-26 13:11] LABS: Absolute Lymphocytes (CBC) 1.4 K/uL (0.7-4.9); Basophils % 0.5 % (0-1.3); Eosinophils % 3.2 % (0-4.4); Hematocrit 42.3 % (36.0-45.0); Lymphocytes % 16.9 % (15.3-44.8); MPV 11.2 fL (7.6-11.3); Monocytes % 6.9 % (3.3-12.3); RBC Red Blood Cell Count 4.77 M/uL (3.86-4.86)
[2018-10-26 13:23] LABS: Potassium 4.1 mmol/L (3.5-5.1)
--- NOTE | 2018-10-26 13:23 | RAD REPORT ---
EXAM DESCRIPTION: CT - Head Brain Wo Cont - 10/26/2018 1:14 pm CLINICAL HISTORY: MENTAL STATUS CHANGE Headache, drowsiness COMPARISON: Head Brain Wo Cont dated 09/28/2018; Head Brain Wo Cont dated 04/18/2018 TECHNIQUE: All CT scans are performed using dose optimization technique as appropriate and may inclu de automated exposure control or mA/KV adjustment according to patient size. FINDINGS: No intracranial hemorrhage, hydrocephalus or extra-axial fluid collection.Advanced general ized brain atrophy is present with advanced periventricular and deep white matter chronic microvascul ar ischemic changes.No areas of brain edema or evidence of midline shift. The paranasal sinuses and mastoids are clear. The calvarium is intact. Vertebral arteries are calcifi ed. IMPRESSION: No acute intracranial abnormality.
--- NOTE | 2018-10-26 13:39 | RAD REPORT ---
EXAM DESCRIPTION: RAD - Chest Single View - 10/26/2018 1:23 pm CLINICAL HISTORY: AMS, eval for aspiration Chest pain. COMPARISON: Chest Single View dated 09/28/2018; Chest Single View dated 04/19/2018; Chest Single View dated 04/18/2018; Chest Single View dated 04/13/2018 FINDINGS: Portable technique limits examination quality. The lungs are grossly clear. A large hiatal hernia is present. The heart is moderately enlarged in si ze. IMPRESSION: No acute intrathoracic process suspected.
[2018-10-26] MEDS ORDERED: NA CHLORIDE 0.9% 500 ML ONE ×2 (14:05→15:25)
[2018-10-26 14:09] LABS: Urine Bacteria <20 /HPF (<20); Urine Culture Reflex Order NOT NEEDED; Urine RBC <5 /HPF (NONE SEEN)
--- NOTE | 2018-10-26 15:24 | ER ---
Nurse's Notes [facility] Name: Dasha Brown Age: 88 yrs Sex: Female : 1930 Arrival Date: 10/26/2018 Time: 12:52 Bed 4 Private MD: Diagnosis: Altered mental status, unspecified;Dehydration;Hypotension;Aspiration of fluid as the cause of abnormal reaction of the patient, or of later complication, without mention of misadventure at the time of the procedure Presentation: 10/26 12:52 Presenting complaint: EMS states: [facility] staff reports the patient had sg a swallow screen exam performed today, while at the table in the dining wheeler the patient slumped forward in her chair and was not responding but still breathing. Transition of care: patient was received from another setting of care (long-term care facility), [facility]. Onset of symptoms was October 26, 2018. Risk Assessment: Do you want to hurt yourself or someone else? Patient reports no desire to harm self or others. Initial Sepsis Screen: Does the patient meet any 2 criteria? No. Patient's initial sepsis screen is negative. Does the patient have a suspected source of infection? No. Patient's initial sepsis screen is negative. Care prior to arrival: IV initiated. 22 GA, in the left wrist, Glucose check: 146. 12:52 Method Of Arrival: EMS: [facility] 12:52 Acuity: CY 2 sg Historical: - Allergies: 13:15 Lipitor; sg - Home Meds: 13:19 amlodipine 10 mg tab 1 tab once daily [Active]; Aricept 5 mg Oral tab 1 tab nightly sg [Active]; aspirin 81 mg Oral tab 1 tab once daily [Active]; clopidogrel 75 mg Oral tab 1 tab once daily [Active]; Combivent Respimat 20-100 mcg/actuation inhalation mist 1 puff 4 times per day [Active]; diclofenac sodium 0.1 % ophthalmic drop 1 drop three times a day [Active]; Flonase 50 mcg/actuation Nasal spsn 1 spray 2 times per day [Active]; ipratropium-albuterol 0.5 mg-3 mg(2.5 mg base)/3 mL Inhl nebu 3 mL 4 times per day [Active]; Klor-Con 10 10 mEq Oral TbER 1 tab once daily [Active]; loratadine 10 mg Oral tab 1 tab once daily [Active]; 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 - Social history:: Smoking status: unknown. - Family history:: not pertinent. - Ebola Screening: : Patient negative for fever greater than or equal to 101.5 degrees Fahrenheit, and additional compatible Ebola Virus Disease symptoms Patient denies exposure to infectious person Patient denies travel to an Ebola-affected area in the 21 days before illness onset No symptoms or risks identified at this time. - Hospitalizations: : No recent hospitalization is reported. - History obtained from: EMS. Screenin:08 Abuse screen: Denies threats or abuse. Denies injuries from another. Nutritional sg screening: unknown, pt was reported to have a swallow screening performed today, unknown results, pt to remain NPO until instructed otherwise. Tuberculosis screening: No symptoms or risk factors identified. Fall Risk None identified. Assessment: 13:04 Reassessment: [facility] with [facility] who reports that after swallow ss screening, patient was brought to dining room to eat lunch, nursing staff noticed that patient was slumped over and unresponsive, so they brought her to her room to suction her of which they reported a fair amount of white- milky substance was suctioned from her oral airway. While suctioning her, patient reportedly became increasingly responsive and by the time EMS arrived to nursing facility, patient was back to baseline, A\\T\\O x1. 13:05 General: Appears in no apparent distress. Behavior is calm, cooperative. Pain: Unable hb to use pain scale. FLACC scale score is 1 out of 10. Neuro: Level of Consciousness is obeys commands, lethargic, Oriented to person. Cardiovascular: Heart tones S1 S2 present Capillary refill < 3 seconds Patient's skin is warm and dry. Respiratory: Airway is patent Respiratory effort is even, unlabored, Respiratory pattern is regular, symmetrical, Breath sounds are clear bilaterally. GI: No signs and/or symptoms were reported involving the gastrointestinal system. : No signs and/or symptoms were reported regarding the genitourinary system. EENT: No signs and/or symptoms were reported regarding the EENT system. Derm: Skin is pink, warm \\T\\ dry. Musculoskeletal: No signs and/or symptoms reported regarding the musculoskeletal system. 13:24 Reassessment: pt remains off the unit in CT at this time. sg 14:00 Reassessment: Patient appears in no apparent distress at this time. No changes from hb previously documented assessment. Patient and/or family updated on plan of care and expected duration. Pain level reassessed. 15:14 Reassessment: BP 89/38, BP 50S, PT REMAINS LETHARGIC. DR. CISNEROS NOTIFIED, REPEAT NS hb BOLUS ADMINISTERED ORDERED. 15:32 Reassessment: Patient appears in no apparent distress at this time. IVF infusing at sg ordered rate at this time, no changes in condition, new VS reported to , pt to be admitted. 16:24 Reassessment: Patient appears in no apparent distress at this time. Patient and/or sg family updated on plan of care and expected duration. Pain level reassessed. pt resting quietly with eyes closed, awakens easily to verbal stimuli, pt awaiting admission to ICU at this time, bed remains in locked and low position, trendelenburg due to BP, srx2, and call light within reach. Curtain remains open for visualization. 17:30 Reassessment: Patient appears in no apparent distress at this time. Patient and/or sg family updated on plan of care and expected duration. Pain level reassessed. pt remains aa\\T\\ox1, reports that pain in top of head is decreased and "wants to take a nap" Patient states feeling better. Vital Signs: 12:52 BP 100 / 45; Pulse 89; Resp 19; Temp 97.4; Pulse Ox 98% on R/A; sg 13:45 BP 108 / 56; Pulse 58; Resp 14; Pulse Ox 96% on R/A; hb 14:45 BP 91 / 42; Pulse 60; Resp 18; Pulse Ox 97% on R/A; sg 15:15 BP 89 / 38; Pulse 54; Resp 15; Pulse Ox 97% on R/A; Pain 0/10; hb 15:32 BP 104 / 71; Pulse 55; Resp 14 S; Pulse Ox 96% on R/A; sg 16:38 BP 105 / 47; Pulse 66; Resp 15 S; Pulse Ox 99% on R/A; sg 18:05 BP 114 / 48; Pulse 60; Resp 14; Pulse Ox 99% on R/A; sg 18:30 BP 113 / 52; Pulse 54; Resp 17; Pulse Ox 96% on R/A; sg 19:00 BP 129 / 46; Pulse 52 MON; Resp 16 S; Temp 97.6; Pulse Ox 100% ; sg 15:15 Osei (FACES) hb ED Course: 12:52 Patient arrived in ED. em1 12:52 Arm band placed on. sg 12:55 Maintain EMS IV. Dressing intact. Site clean \\T\\ dry. Gauge \\T\\ site: 22 L Wrist. IV is sg patent, is intact, with fluids infusing freely, without good blood return, Flushed left saline lock with 5 ml normal saline. 12:56 Margarito Cisneros MD is Attending Physician. rn 13:00 Patient has correct armband on for positive identification. Placed in gown. Bed in low hb position. Call light in reach. Side rails up X2. 13:00 environmental monitoring technician on. Pulse ox on. NIBP on. hb 13:09 Inserted saline lock: 20 gauge in left antecubital area, using aseptic technique. Blood em1 collected. 13:09 First set of blood cultures drawn by me. em1 13:10 Triage completed. sg 13:12 CT completed. Patient tolerated procedure well. Patient moved to CT via stretcher. [id number] Patient moved back from CT. 13:13 CT Head Brain wo Cont In Process Unspecified. EDMS 13:17 Patient moved to radiology via stretcher. jb2 13:20 X-ray completed. Patient tolerated procedure well. jb2 13:22 XRAY Chest (1 view) In Process Unspecified. EDMS 13:23 Patient moved back from radiology. jb2 13:24 Bruce Grant, RN is Primary Nurse. sg 13:30 Second set of blood cultures drawn by ED staff. sg 13:48 Straight cath inserted, using sterile technique, 16 Fr. Specimen obtained. Returned hb clear yellow urine. Patient tolerated well. 15:09 Jackson Trejo MD is Hospitalizing Provider. rn 15:41 Justin Aguilar MD is Hospitalizing Provider. rn 17:40 IV discontinued, intact, bleeding controlled, No redness/swelling at site. Pressure sg dressing applied, 20 G LAC, 22 G L WRIST dc'd by patient, IV fluids restarted at new site. 17:50 Inserted saline lock: 22 gauge in right wrist, using aseptic technique. sg 18:35 No provider procedures requiring assistance completed. sg Administered Medications: 13:54 Drug: NS 0.9% 500 ml Route: IV; Rate: bolus; Site: left wrist; sg 15:00 Follow up: Response: No adverse reaction; IV Status: Completed infusion; IV Intake: sg 500ml 15:10 Drug: NS 0.9% 500 ml Route: IV; Rate: bolus; Site: left wrist; hb 16:12 Follow up: Response: No adverse reaction; IV Status: Completed infusion; IV Intake: sg 500ml 16:20 Drug: NS 0.9% 1000 ml Route: IV; Rate: 125 ml/hr; Site: left wrist; sg 17:50 Follow up: Response: No adverse reaction; IV Intake: 250ml ; IV SiteChange: right sg wrist; IV SiteChange Reason: Patient removed 19:25 Follow up: IV Status: Infusion continued upon admission sg 16:20 Drug: Zosyn 3.375 grams Route: IVPB; Infused Over: 60 mins; Site: left wrist; sg 17:30 Follow up: Response: No adverse reaction; IV Status: Completed infusion sg Intake: 15:00 IV: 500ml; Total: 500ml. sg 16:12 IV: 500ml; Total: 1000ml. sg 17:50 IV: 250ml; Total: 1250ml. sg Output: 13:48 Urine: 350ml (Straight Cath); Total: 350ml. hb Outcome: 15:10 Decision to Hospitalize by Provider. rn 19:13 Admitted to ICU accompanied by nurse, accompanied by agustin, via stretcher, room 1, with sg chart, Report called to Joss CONLEY 19:13 Condition: stable 19:13 Instructed on the need for admit, safety practices, Demonstrated understanding of instructions. 20:13 Patient left the ED. ak1 Signatures: Dispatcher [employer] EDMS Bruec Grant, RN Jacek Shah jbMargarito Francisco MD MD rn Martinez, Eric em1 Smirch, Shelby, RN RN ss Krenek, Amber, RN RN ak1 Marga Olivares RN RN hb Garcia, Jessica jg6 Corrections: (The following items were deleted from the chart) 13:48 13:00 Straight cath inserted, using sterile technique, 16 Fr. Specimen obtained. hb Returned clear yellow urine. Patient tolerated well. hb
--- NOTE | 2018-10-26 15:24 | EDPHYS ---
Physician Documentation [facility] Name: Dasha Brown Age: 88 yrs Sex: Female : 1930 Arrival Date: 10/26/2018 Time: 12:52 Bed 4 Private MD: ED Physician Margarito Cisneros HPI: 10/26 13:00 This 88 yrs old Female presents to ER via Unassigned with complaints of AMS. rn 13:00 The patient presents with decreased mental status, decreased responsiveness. Onset: The rn symptoms/episode began/occurred at an unknown time. Possible causes: unknown. Current symptoms: In the emergency department the patient's symptoms have improved. It is unknown whether or not the patient has had similar symptoms in the past. Per half-way and EMS report, had swallow study earlier in day, unknown results, was found slumped over and unresponsive at table, unsure if had eaten anything, took her to her room to change her, called 911, and returned back to her baseline upon EMS arrival. Patient reports head and throat hurt. Denies cough/sob/abd pain/vomiting/diarrhea. . Told by [facility] that A\T\O x 1 is her baseline. . Historical: - Allergies: 13:15 Lipitor; sg - Home Meds: 13:19 amlodipine 10 mg tab 1 tab once daily [Active]; Aricept 5 mg Oral tab 1 tab nightly sg [Active]; aspirin 81 mg Oral tab 1 tab once daily [Active]; clopidogrel 75 mg Oral tab 1 tab once daily [Active]; Combivent Respimat 20-100 mcg/actuation inhalation mist 1 puff 4 times per day [Active]; diclofenac sodium 0.1 % ophthalmic drop 1 drop three times a day [Active]; Flonase 50 mcg/actuation Nasal spsn 1 spray 2 times per day [Active]; ipratropium-albuterol 0.5 mg-3 mg(2.5 mg base)/3 mL Inhl nebu 3 mL 4 times per day [Active]; Klor-Con 10 10 mEq Oral TbER 1 tab once daily [Active]; loratadine 10 mg Oral tab 1 tab once daily [Active]; 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 - Social history:: Smoking status: unknown. - Family history:: not pertinent. - Ebola Screening: : Patient negative for fever greater than or equal to 101.5 degrees Fahrenheit, and additional compatible Ebola Virus Disease symptoms Patient denies exposure to infectious person Patient denies travel to an Ebola-affected area in the 21 days before illness onset No symptoms or risks identified at this time. - Hospitalizations: : No recent hospitalization is reported. - History obtained from: EMS. ROS: 13:00 Constitutional: Negative for fever, chills, and weight loss, Eyes: Negative for injury, rn pain, redness, and discharge, Neck: + sore throat Cardiovascular: Negative for chest pain, palpitations, and edema, Respiratory: Negative for shortness of breath, cough, wheezing, and pleuritic chest pain, Abdomen/GI: Negative for abdominal pain, nausea, vomiting, diarrhea, and constipation, MS/Extremity: Negative for injury and deformity, Skin: Negative for injury, rash, and discoloration, Neuro: Negative for numbness, tingling, and seizure. Exam: 13:00 Constitutional: Older female, no acute distress, somnolent but awakens to voice rn Head/Face: Normocephalic, atraumatic. ENT: dry MM, no food products in mouth, no stridor Neck: Trachea midline, no thyromegaly or masses palpated, and no cervical lymphadenopathy. Supple, full range of motion without nuchal rigidity, or vertebral point tenderness. No Meningismus. Cardiovascular: Regular rate and rhythm, No pulse deficits. Respiratory: Lungs have equal breath sounds bilaterally, clear to auscultation. No increased work of breathing, no retractions or nasal flaring. Abdomen/GI: Soft, non-tender MS/ Extremity: Pulses equal, no cyanosis. Neurovascular intact. Full, normal range of motion. Equal circumference. Neuro: Somnolent, arousable to voice, GCS 15, oriented to person, not place or time. Cranial nerves II-XII grossly intact. Motor strength 4/5 in all extremities. Sensory grossly intact. 13:43 ECG was reviewed by the Attending Physician. rn Vital Signs: 12:52 BP 100 / 45; Pulse 89; Resp 19; Temp 97.4; Pulse Ox 98% on R/A; sg 13:45 BP 108 / 56; Pulse 58; Resp 14; Pulse Ox 96% on R/A; hb 14:45 BP 91 / 42; Pulse 60; Resp 18; Pulse Ox 97% on R/A; sg 15:15 BP 89 / 38; Pulse 54; Resp 15; Pulse Ox 97% on R/A; Pain 0/10; hb 15:32 BP 104 / 71; Pulse 55; Resp 14 S; Pulse Ox 96% on R/A; sg 16:38 BP 105 / 47; Pulse 66; Resp 15 S; Pulse Ox 99% on R/A; sg 18:05 BP 114 / 48; Pulse 60; Resp 14; Pulse Ox 99% on R/A; sg 18:30 BP 113 / 52; Pulse 54; Resp 17; Pulse Ox 96% on R/A; sg 19:00 BP 129 / 46; Pulse 52 MON; Resp 16 S; Temp 97.6; Pulse Ox 100% ; sg 15:15 WinstonBrown (FACES) hb MDM: 12:56 Patient medically screened. rn 15:06 Differential Diagnosis: CVA, electrolyte abnormality, hypoglycemia, intracranial bleed, rn pneumonia, sepsis, UTI, volume depletion. Data reviewed: vital signs, nurses notes, lab test result(s), EKG, radiologic studies, CT scan, plain films, and as a result, I will admit patient. Counseling: I had a detailed discussion with the patient and/or guardian regarding: the historical points, exam findings, and any diagnostic results supporting the discharge/admit diagnosis, lab results, radiology results, the need for further work-up and treatment in the hospital. Response to treatment: There is no appreciated change of the patient's symptoms at this time, and as a result, I will admit patient. Admission orders: after a detailed discussion of the patient's condition and case, the admit orders are written by me. ED course: UNclear etiology of patient's AMS, but remains hypotensive, + dehydrated, possible aspiration given story by [facility] being at dining room and requiring heavy suction. Will admit. . 15:41 ED course: SPoke with Dr. Aguilar, will admit to ICU, with dose of zosyn, and continued rn monitoring due to likely aspiration and hypotension.. 10/26 12:58 Order name: CBC with Diff; Complete Time: 13:41 rn 10/26 12:58 Order name: Basic Metabolic Panel; Complete Time: 13:41 rn 10/26 12:58 Order name: Urine Culture rn 10/26 12:58 Order name: Urine Microscopic Only; Complete Time: 14:14 rn 10/26 12:58 Order name: Blood Culture Adult (2) rn 10/26 12:58 Order name: Procalcitonin; Complete Time: 14:14 rn 10/26 12:58 Order name: CT Head Brain wo Cont; Complete Time: 13:41 rn 10/26 12:58 Order name: Lactate; Complete Time: 14:14 rn 10/26 12:58 Order name: XRAY Chest (1 view); Complete Time: 13:41 rn 10/26 14:17 Order name: Urine Dipstick--Ancillary (enter results) bd 10/26 12:58 Order name: IV Start; Complete Time: 13:54 rn 10/26 12:58 Order name: Urine Dipstick-Ancillary (obtain specimen); Complete Time: 13:50 rn 10/26 12:58 Order name: EKG; Complete Time: 13:00 rn 10/26 12:58 Order name: EKG - Nurse/Tech; Complete Time: 13:50 rn 10/26 12:59 Order name: Glucose Level; Complete Time: 14:48 rn EC:43 Rate is 58 beats/min. Rhythm is regular. QRS [place] is Normal. [place] interval is normal. QRS rn interval is normal. QT interval is normal. No Q waves. T waves are Normal. No ST changes noted. Clinical impression: Sinus bradycardia. Interpreted by me. Reviewed by me. Administered Medications: 13:54 Drug: NS 0.9% 500 ml Route: IV; Rate: bolus; Site: left wrist; sg 15:00 Follow up: Response: No adverse reaction; IV Status: Completed infusion; IV Intake: sg 500ml 15:10 Drug: NS 0.9% 500 ml Route: IV; Rate: bolus; Site: left wrist; hb 16:12 Follow up: Response: No adverse reaction; IV Status: Completed infusion; IV Intake: sg 500ml 16:20 Drug: NS 0.9% 1000 ml Route: IV; Rate: 125 ml/hr; Site: left wrist; sg 17:50 Follow up: Response: No adverse reaction; IV Intake: 250ml ; IV SiteChange: right sg wrist; IV SiteChange Reason: Patient removed 19:25 Follow up: IV Status: Infusion continued upon admission sg 16:20 Drug: Zosyn 3.375 grams Route: IVPB; Infused Over: 60 mins; Site: left wrist; sg 17:30 Follow up: Response: No adverse reaction; IV Status: Completed infusion sg Disposition: 10/26/18 15:10 Hospitalization ordered by Justin Aguilar for Inpatient Admission. Preliminary diagnosis are Altered mental status, unspecified, Dehydration, Hypotension, Aspiration of fluid as the cause of abnormal reaction of the patient, or of later complication, without mention of misadventure at the time of the procedure. - Bed requested for Intensive Care Unit. - Status is Inpatient Admission. ak1 - Condition is Stable. - Problem is new. - Symptoms are unchanged. UTI on Admission? No Signatures: Dispatcher [employer] Adelaida Amaro RN RN Bruce Grant RN JARVIS Margarito Cisneros MD MD rn Krenek, Amber, RN RN ak1 Marga Olivares RN RN Corrections: (The following items were deleted from the chart) 15:41 15:10 Hospitalization Ordered by Jackson Trejo MD for Inpatient Admission. Preliminary rn diagnosis is Altered mental status, unspecified; Dehydration; Hypotension; Aspiration of fluid as the cause of abnormal reaction of the patient, or of later complication, without mention of misadventure at the time of the procedure. Bed requested for Telemetry/MedSurg (Inpatient). Status is Inpatient Admission. Condition is Stable. Problem is new. Symptoms are unchanged. UTI on Admission? No. rn 15:48 15:41 10/26/2018 15:10 Hospitalization Ordered by Justin Aguilar MD for Inpatient international travel consultant. Preliminary diagnosis is Altered mental status, unspecified; Dehydration; Hypotension; Aspiration of fluid as the cause of abnormal reaction of the patient, or of later complication, without mention of misadventure at the time of the procedure. Bed requested for Telemetry/MedSurg (Inpatient). Status is Inpatient Admission. Condition is Stable. Problem is new. Symptoms are unchanged. UTI on Admission? No. rn 18:28 15:48 10/26/2018 15:10 Hospitalization Ordered by Justin Aguilar MD for Inpatient dw Admission. Preliminary diagnosis is Altered mental status, unspecified; Dehydration; Hypotension; Aspiration of fluid as the cause of abnormal reaction of the patient, or of later complication, without mention of misadventure at the time of the procedure. Bed requested for Intensive Care Unit. Status is Inpatient Admission. Condition is Stable. Problem is new. Symptoms are unchanged. UTI on Admission? No. rn 20:13 18:28 10/26/2018 15:10 Hospitalization Ordered by Justin Aguilar MD for Inpatient ak1 Admission. Preliminary diagnosis is Altered mental status, unspecified; Dehydration; Hypotension; Aspiration of fluid as the cause of abnormal reaction of the patient, or of later complication, without mention of misadventure at the time of the procedure. Bed requested for Intensive Care Unit. Status is Inpatient Admission. Condition is Stable. Problem is new. Symptoms are unchanged. UTI on Admission? No. dw
[2018-10-26 15:47] LABS: Urine Blood NEGATIVE (NEG); Urine Glucose NEGATIVE (NEG); Urine Protein NEGATIVE (NEG); Urine pH 5.5 (5.0-7.0)
[2018-10-26] MEDS ORDERED: NA CHLORIDE 0.9% 1,000 ML ONE (16:28)
[2018-10-26] MEDS ORDERED: PIPER/TAZO/NS 3.375gm 3.375 GM/100 ML BAG ONE (16:28)
--- NOTE | 2018-10-26 19:17 | P.HP ---
Certification for Inpatient Patient admitted to: Inpatient With expected LOS: >2 Midnights Patient will require the following post-hospital care: Snf Practitioner: I am a practitioner with admitting privileges, knowledge of patient current condition, hospital course, and medical plan of care. Services: Services provided to patient in accordance with Admission requirements found in Title 42 Section 412.3 of the Code of Federal Regulations Patient History Date of Service: 10/26/18 Primary Care Provider: Jeff Reason for admission: Aspiration History of Present Illness: Patient is an 88 year old with dementia I take care of her in [place]. The patient recently failed a swallow study. She was in the dining wheeler, when she slumped over. The staff suctioned her and sent her to the ER. EMS found her to be hypoxic and hypotensive. SpO2 was in the 70's. and bp was 80/40's. She was bolused in the ER oxygen and mental function improved. She does complain about being cold. Allergies atorvastatin [From Lipitor] Allergy (Verified 04/13/18 20:52) unknown Home Medications: Acetaminophen [Tylenol] 2 tab PO Q6H PRN 04/14/18 Amlodipine Besylate [Norvasc] 10 mg PO DAILY 04/14/18 Aspirin Chewable [Aspirin Chewable*] 81 mg PO DAILY 04/14/18 Clopidogrel Bisulfate [Plavix*] 75 mg PO DAILY 04/14/18 Diclofenac 0.1% Ophth [Voltaren*] 1 drop EACH EYE TID 04/14/18 Donepezil [Aricept*] 10 mg PO BEDTIME 04/14/18 Fluticasone Propionate [Flonase Allergy Relief] 1 spray [place]ON BID 04/14/18 Furosemide [Lasix*] 40 mg PO DAILY 04/14/18 Ipratropium/Albuterol Sulfate [Combivent Respimat 20-100 Mcg] 1 puff IH Q6H PRN 04/14/18 Loratadine [Claritin*] 10 mg PO DAILY 04/14/18 Memantine HCl [Namenda*] 10 mg PO BID 04/14/18 Potassium Oral Tab [Klor-Con 10 mEq Tab*] 10 meq PO DAILY 04/14/18 Pregabalin [Lyrica*] 75 mg PO BID 04/14/18 Simvastatin 10 mg PO DAILY 04/14/18 Valsartan/Hydrochlorothiazide [Valsartan-Hctz 160-12.5 mg Tab] 1 tab PO DAILY Benzonatate [Tessalon Perle] 200 mg PO Q8HP PRN 04/18/18 levoFLOXacin [Levaquin*] 500 mg PO DAILY 7 Days #7 tab 09/29/18 - Past Medical/Surgical History Diabetic: No -: dementia -: HTN -: heart murmur -: aortic stenosis -: trigeminal neuralgia -: TIA -: gen muscle weakness -: allergic rhinitis -: COPD -: left leg venous stripping - Family History Mother -: Heart disease - Social History Alcohol use: No CD- Drugs: No Caffeine use: Yes Review of Systems 10-point ROS is otherwise unremarkable (states she is cold. Otherwise no complaints.) Physical Examination - Physical Exam General: Alert, In no apparent distress, Confused HEENT: Atraumatic, PERRLA, Mucous membr. moist/pink, EOMI, Sclerae nonicteric Neck: Supple, 2+ carotid pulse no bruit, No LAD, Without JVD or thyroid abnormality Respiratory: Clear to auscultation bilaterally, Normal air movement Cardiovascular: Regular rate/rhythm, Normal S1 S2 Gastrointestinal: Normal bowel sounds, No tenderness Musculoskeletal: No tenderness Integumentary: No rashes Neurological: Normal gait, Normal speech, Normal strength at 5/5 x4 extr, Normal tone, Normal affect Lymphatics: No axilla or inguinal lymphadenopathy - Studies Laboratory Data (last 24 hrs) 10/26/18 13:00: Sodium 143, Potassium 4.1, BUN 58 H, Creatinine 1.94 H, Glucose 106 10/26/18 13:00: WBC 8.4, Hgb 13.7, Hct 42.3, Plt Count 132 L Assessment and Plan - Problems (Diagnosis) (1) Aspiration pneumonia Current Visit: Yes Status: Acute Plan: Patient initially had a clear chest xray. Will admit her keep her on fluids and iv antibiotics. Cultures pending. Breathing treatment only if sob. Will recheck an xray in the am to see if she develops any infiltrates. Qualifiers: Aspiration pneumonia type: due to regurgitated food Laterality: unspecified laterality Lung location: unspecified part of lung Qualified Code(s): J69.0 - Pneumonitis due to inhalation of food and vomit (2) Dementia Onset Date: 04/14/18 Current Visit: No Status: Acute Plan: doing well. Will keep her with PT and follow up. Qualifiers: Dementia type: Alzheimer's disease (3) Hiatal hernia Onset Date: 04/14/18 Current Visit: No Status: Acute Plan: failed a recent swallow study. will need to have a family meeting She has a son. Will need to see if the patient is for a peg tube or hospice. Will get a swallow evaluation as well. (4) SILVER (acute kidney injury) Onset Date: 04/14/18 Current Visit: No Status: Resolved Discharge Plan: [facility] Plan to discharge in: Greater than 2 days - Advance Directives Does patient have a Living Will: Yes Does patient have a Durable POA for Healthcare: No - Code Status/Comfort Care Code Status Assessed: No Physician Review: Patient Assessed, Agree with Above Assessment and Plan Critical Care: Yes Time Spent Managing Pts Care (In Minutes): 50
[2018-10-26] MEDS ORDERED: LEVALBUTEROL 0.63 MG/3 ML NEB NEB PRN (19:28)
[2018-10-26] MEDS ORDERED: ONDANSETRON 4 MG/2 ML VIAL IV PRN (19:28)
[2018-10-26] MEDS ORDERED: D5 0.45 NS 1,000 ML IV SCH (19:28)
[2018-10-26] MEDS: NA CHLORIDE 0.9% 1,000 ML IV SCH (20:30)
[2018-10-26] MEDS ORDERED: SODIUM CHLORIDE 0.9% 10ML INJ IV PRN (20:44)
[2018-10-26] MEDS: ENOXAPARIN 30 MG/0.3 ML SQ SCH (21:22)
[2018-10-27] MEDS ORDERED: PIPERACIL/TAZO 3.375 GM VIAL IV ONE (00:04)
[2018-10-27] MEDS ORDERED: NA CHLORIDE 0.9% 100 ML ONE (00:26)
[2018-10-27] MEDS: PIPER/TAZO/NS 3.375gm 3.375 GM/100 ML BAG IVPB SCH ×3 (00:29→16:49)
[2018-10-27 06:22] LABS: Absolute Lymphocytes (CBC) 1.4 K/uL (0.7-4.9); Basophils % 0.7 % (0-1.3); Eosinophils % 5.1 % (0-4.4); Hematocrit 37.4 % (36.0-45.0); Lymphocytes % 27.7 % (15.3-44.8); MPV 11.6 fL (7.6-11.3); Monocytes % 8.9 % (3.3-12.3); RBC Red Blood Cell Count 4.21 M/uL (3.86-4.86)
[2018-10-27] MEDS ORDERED: PANTOPRAZOLE 40MG TABLET PO SCH (06:30)
[2018-10-27 06:46] LABS: Albumin 2.9 g/dL (3.4-5.0); Bilirubin Total 0.4 mg/dL (0.2-1.0); Potassium 3.5 mmol/L (3.5-5.1); Protein, Total 7.3 g/dL (6.4-8.2)
--- NOTE | 2018-10-27 06:46 | RAD REPORT ---
EXAM DESCRIPTION: RAD - Chest Single View - 10/26/2018 9:22 pm CLINICAL HISTORY: Aspiration, shortness of breath COMPARISON: October 26 TECHNIQUE: AP portable chest image was obtained 2120 hours . FINDINGS: Interstitial markings are similar to comparison. No focal mass or consolidation. Large hia marichuy hernia again noted. Heart size remains slightly enlarged. No measurable pleural effusion and no p neumothorax. No acute bony abnormality seen. No acute aortic findings suspected. IMPRESSION: Stable chest.
--- NOTE | 2018-10-27 06:49 | RAD REPORT ---
EXAM DESCRIPTION: RAD - Chest Single View - 10/27/2018 6:33 am CLINICAL HISTORY: Aspiration, shortness of breath COMPARISON: October 26 examinations TECHNIQUE: AP portable chest image was obtained 0628 hours . FINDINGS: Lung volumes remain low. Interstitial markings match the comparison studies. Heart size re iraj prominent. No vascular engorgement. Large hiatal hernia again noted. No measurable pleural effu esau and no pneumothorax. No acute bony abnormality seen. No acute aortic findings suspected. IMPRESSION: Stable chest.
[2018-10-27] MEDS: PANTOPRAZOLE 40 MG INJ IVP SCH (08:04)
[2018-10-27] MEDS: NA CHLORIDE 0.9% 1,000 ML IV SCH ×2 (08:05→22:40)
--- NOTE | 2018-10-27 10:05 | P.PN ---
Subjective Date of Service: 10/27/18 Primary Care Provider: Jeff Chief Complaint: Aspiration Subjective: Improving (Patient's bp and chest xray are stable this morning. Her son is at the bedside) Review of Systems 10-point ROS is otherwise unremarkable Physical Examination - Vital Signs Temperature: 97 F Blood Pressure: 127/36 Pulse: 55 Respirations: 25 Pulse Ox (%): 97 - Physical Exam General: Alert, In no apparent distress HEENT: Atraumatic, PERRLA, EOMI Neck: Supple, JVD not distended Respiratory: Clear to auscultation bilaterally, Normal air movement Cardiovascular: Regular rate/rhythm, Normal S1 S2 Gastrointestinal: Normal bowel sounds, No tenderness Musculoskeletal: No tenderness Integumentary: No rashes Neurological: Normal speech, Normal tone, Normal affect Lymphatics: No axilla or inguinal lymphadenopathy - Studies Laboratory Data (last 24 hrs) 10/26/18 13:00: Sodium 143, Potassium 4.1, BUN 58 H, Creatinine 1.94 H, Glucose 106 10/26/18 13:00: WBC 8.4, Hgb 13.7, Hct 42.3, Plt Count 132 L Assessment & Plan - Problems (Diagnosis) (1) Dementia Onset Date: 04/14/18 Current Visit: No Status: Acute Plan: doing well. Will keep her with PT and follow up. Qualifiers: Dementia type: Alzheimer's disease (2) Hiatal hernia Onset Date: 04/14/18 Current Visit: No Status: Acute Plan: failed a recent swallow study. will need to have a family meeting She has a son. Will need to see if the patient is for a peg tube or hospice. Will get a swallow evaluation as well. (3) SILVER (acute kidney injury) Onset Date: 04/14/18 Current Visit: No Status: Resolved Plan: Patient kidney funtion is improving. Her baseline gfr is in the 40's. Will continue fluids and continue monitoring (4) Aspiration pneumonia Current Visit: Yes Status: Acute Plan: stable chest xray. Labs are improving. She most likely does not have pneumonia. Will move her out of the unit. Qualifiers: Aspiration pneumonia type: due to regurgitated food Laterality: unspecified laterality Lung location: unspecified part of lung Qualified Code(s): J69.0 - Pneumonitis due to inhalation of food and vomit (5) End of life care Current Visit: Yes Status: Acute Plan: discussed with son. She is a DNR. Failed a swallow study in [place]. The patient will be seen by Speech. If she fails may have to decide between a peg tube and hospice. The son is leaning towards hospice. Will consult [facility]. See if the patient wants to discuss this with them. Discharge Plan: [facility] Plan to discharge in: 24 Hours - Code Status/Comfort Care Code Status Assessed: Yes Code Status: Do Not Resuscitate Physician Review: Patient Assessed, Agree with Above Assessment and Plan Critical Care: No Time Spent Managing Pts Care (In Minutes): 30
--- NOTE | 2018-10-27 14:42 | RAD REPORT ---
EXAM DESCRIPTION: RAD - Barium Swallow Modified - 10/27/2018 2:16 pm CLINICAL HISTORY: dysphagia r/o aspiration COMPARISON: None. TECHNIQUE: The patient was given liquid, semi-solid and solid forms of barium. Lateral view fluorosc opic imaging was performed in conjunction with speech pathology service. FINDINGS: Cineloop acquisitions: 15 Fluoro time: 4 minutes 17 seconds Laryngeal penetration: Cleared with honey and pudding, Not cleared with thin and nectar Aspiration: Delayed ineffective cough, with nectar Pharyngeal residue: Vallecular, moderate residue with all consistences. Trace on Posterior wall with pudding moderate oral holding with thin, honey, pudding, mech soft. mild delayed swallow (1 sec) IMPRESSION: Modified barium swallow as summarized above and fully detailed on speech pathology repor michelle
--- NOTE | 2018-10-27 14:52 | EKG ---
Test Date: 2018-10-26 Test Time: 13:34:24 Heat Treater Helper: LARON MEASUREMENT RESULTS: Intervals: Rate: 58 IL: 196 QRSD: 82 QT: 460 QTc: 451 [place]: P: 31 [place]: 196 QRS: 7 T: 63 INTERPRETIVE STATEMENTS: Sinus bradycardia Otherwise normal ECG Compared to ECG 09/28/2018 12:29:35 Sinus rhythm no longer present Myocardial infarct finding no longer present Electronically Signed On 10-27-18 14:47:38 CDT by Jayesh Weir
[2018-10-27] MEDS: ENOXAPARIN 30 MG/0.3 ML SQ SCH (16:49)
[2018-10-28] MEDS: PIPER/TAZO/NS 3.375gm 3.375 GM/100 ML BAG IVPB SCH ×3 (00:10→17:00)
[2018-10-28] MEDS: NA CHLORIDE 0.9% 1,000 ML IV SCH ×2 (00:11→12:00)
[2018-10-28 06:05] LABS: Basophils % 0.8 % (0-1.3); Eosinophils % 5.1 % (0-4.4); Hematocrit 35.3 % (36.0-45.0); Lymphocytes % 24.4 % (15.3-44.8); Monocytes % 8.1 % (3.3-12.3); RBC Red Blood Cell Count 4.03 M/uL (3.86-4.86)
[2018-10-28 06:18] LABS: Albumin 2.8 g/dL (3.4-5.0); Bilirubin Total 0.6 mg/dL (0.2-1.0); Potassium 3.3 mmol/L (3.5-5.1); Protein, Total 7.1 g/dL (6.4-8.2)
--- NOTE | 2018-10-28 09:57 | P.DS ---
Admission Date: 10/26/18 Discharge Date: 10/28/18 Primary Care Provider: Jeff Disposition: TRANSFER TO SNF Discharge Condition: FAIR Reason for Admission: Aspiration - Problems (1) Dementia Onset Date: 04/14/18 Current Visit: No Status: Acute Qualifiers: Dementia type: Alzheimer's disease (2) Hiatal hernia Onset Date: 04/14/18 Current Visit: No Status: Acute (3) SILVER (acute kidney injury) Onset Date: 04/14/18 Current Visit: No Status: Resolved (4) Aspiration pneumonia Current Visit: Yes Status: Ruled-out Qualifiers: Aspiration pneumonia type: due to regurgitated food Laterality: unspecified laterality Lung location: unspecified part of lung Qualified Code(s): J69.0 - Pneumonitis due to inhalation of food and vomit (5) End of life care Current Visit: Yes Status: Acute Brief History of Present Illness: Patient is an 88 year old with dementia I take care of her in [place]. The patient recently failed a swallow study. She was in the dining wheeler, when she slumped over. The staff suctioned her and sent her to the ER. EMS found her to be hypoxic and hypotensive. SpO2 was in the 70's. and bp was 80/40's. She was bolused in the ER oxygen and mental function improved. She does complain about being cold. Vital Signs/Physical Exam: Temp Pulse Resp BP Pulse Ox 97.8 F 62 14 131/48 L 93 10/28/18 08:00 10/28/18 08:00 10/28/18 08:00 10/28/18 08:00 10/28/18 08:00 General: Alert, In no apparent distress HEENT: Atraumatic, PERRLA, EOMI Neck: Supple, JVD not distended Respiratory: Clear to auscultation bilaterally, Normal air movement Cardiovascular: Regular rate/rhythm, Normal S1 S2 Gastrointestinal: Normal bowel sounds, No tenderness Musculoskeletal: No tenderness Integumentary: No rashes Neurological: Normal speech, Normal tone, Normal affect Lymphatics: No axilla or inguinal lymphadenopathy Laboratory Data at Discharge: WBC 3.9 K/uL (4.3-10.9) L D 10/28/18 05:36 Hgb 11.8 g/dL (12.0-15.0) L 10/28/18 05:36 Hct 35.3 % (36.0-45.0) L 10/28/18 05:36 Plt Count 107 K/uL (152-406) L 10/28/18 05:36 Sodium 150 mmol/L (136-145) H 10/28/18 05:36 Potassium 3.3 mmol/L (3.5-5.1) L 10/28/18 05:36 BUN 36 mg/dL (7-18) H 10/28/18 05:36 Creatinine 1.42 mg/dL (0.55-1.3) H 10/28/18 05:36 Glucose 65 mg/dL (74-106) L 10/28/18 05:36 Total Bilirubin 0.6 mg/dL (0.2-1.0) 10/28/18 05:36 AST 31 U/L (15-37) 10/28/18 05:36 ALT 24 U/L (12-78) 10/28/18 05:36 Alkaline Phosphatase 59 U/L (45-117) 10/28/18 05:36 Home Medications: Acetaminophen [Tylenol] 650 mg PO Q6HP PRN 10/26/18 Amlodipine [Norvasc] 10 mg PO DAILY 10/26/18 Aspirin 81 mg PO DAILY 10/26/18 Benzonatate 200 mg PO Q8HP 10/26/18 Clopidogrel Bisulfate [Plavix] 75 mg PO DAILY 10/26/18 Diclofenac 0.1% Ophth [Voltaren Ophth Angela] 1 drops OPTH TID 10/26/18 Donepezil HCl [Aricept] 10 mg PO BEDTIME 10/26/18 Fluticasone [Flonase 50mcg Nasal [place]] 1 sprays [place] BID 10/26/18 Furosemide [Lasix] 40 mg PO DAILY 10/26/18 Ipratropium/Albuterol Sulfate [Combivent Respimat Inhal [place]] 1 puff IH Q6HP PRN 10/26/18 Loratadine [Claritin] 10 mg PO DAILY 10/26/18 Memantine HCl [Namenda] 10 mg PO BID 10/26/18 Potassium Oral Tab [Klor-Con 10 mEq Tab] 10 meq PO DAILY 10/26/18 Pregabalin [Lyrica] 75 mg PO BID 10/26/18 Simvastatin 10 mg PO BEDTIME 10/26/18 Valsartan/Hydrochlorothiazide [Valsartan-Hctz 160-12.5 mg Tab] 1 each PO DAILY 10/26/18 Diet: honey thickened liquid and mechanical soft discharged Activity: Ad raphael
[2018-10-28] MEDS: PANTOPRAZOLE 40 MG INJ IVP SCH (10:38)
[2018-10-28] MEDS: ENOXAPARIN 30 MG/0.3 ML SQ SCH (17:00)
[2018-10-28] MEDS ORDERED: LEVALBUTEROL 0.63 MG/3 ML NEB NEB PRN (17:00)
== END 2018-10-28 17:39 | DRG 684 ==
LOC: ER 12:47 → ERHOLD 15:44 → 3RD-ICU 19:07 → 4TH 10-27 11:42 → 3RD-ICU 10-27 11:52 → 4TH 10-27 12:00
PROVIDERS: ADMIT Internal Medicine; ATTEND Internal Medicine
DX: N17.9 Acute kidney failure, unspecified (principal); G30.9 Alzheimer's disease, unspecified; F02.80 Dementia in other diseases classified elsewhere, unspecified severity, without behavioral disturbance, psychotic disturbance, mood disturbance, and anxiety; K44.9 Diaphragmatic hernia without obstruction or gangrene; J44.9 Chronic obstructive pulmonary disease, unspecified; Z66 Do not resuscitate; Z79.82 Long term (current) use of aspirin; Z86.73 Personal history of transient ischemic attack (TIA), and cerebral infarction without residual deficits
CPT/HCPCS: 36415; 51702; 70450; 71045; 74230; 80048; 80053; 81003; 81015; 83605; 84145; 85025; 87040; 87086; 87088; 92611; 93005; 96361; 96365; 99285; C9113; J1650; J2543; J7030

== ENCOUNTER 2018-11-14 11:26 | Emergency (ER) | payer OTHER ==
[2018-11-14 12:01] LABS: Absolute Lymphocytes (CBC) 1.8 K/uL (0.7-4.9); Basophils % 0.6 % (0-1.3); Eosinophils % 6.4 % (0-4.4); Hematocrit 39.7 % (36.0-45.0); Lymphocytes % 26.7 % (15.3-44.8); MPV 11.2 fL (7.6-11.3); Monocytes % 8.3 % (3.3-12.3); RBC Red Blood Cell Count 4.48 M/uL (3.86-4.86)
[2018-11-14 12:06] LABS: Protime INR 0.99
--- NOTE | 2018-11-14 12:15 | RAD REPORT ---
EXAM DESCRIPTION: CT - Head Brain Wo Cont - 11/14/2018 12:08 pm CLINICAL HISTORY: SYNCOPE Headache, drowsiness, hypertension COMPARISON: <Comparisons> TECHNIQUE: All CT scans are performed using dose optimization technique as appropriate and may inclu de automated exposure control or mA/KV adjustment according to patient size. FINDINGS: No intracranial hemorrhage, hydrocephalus or extra-axial fluid collection.Prominent genera lized brain atrophy is present with prominent periventricular and deep white matter chronic microvasc ular ischemic changes.No areas of brain edema or evidence of midline shift. The paranasal sinuses and mastoids are clear. The calvarium is intact. Vertebral arteries are calcifi ed. IMPRESSION: No acute intracranial abnormality.
--- NOTE | 2018-11-14 12:18 | RAD REPORT ---
EXAM DESCRIPTION: RAD - Chest Single View - 11/14/2018 12:02 pm CLINICAL HISTORY: syncope Chest pain. COMPARISON: Chest Single View dated 10/27/2018; Chest Single View dated 10/26/2018; Chest Single View dated 10/26/2018; Chest Single View dated 09/28/2018 FINDINGS: Portable technique limits examination quality. The lungs are grossly clear. The heart is mildly enlarged with a tortuous thoracic aorta. Large hiata l hernia. IMPRESSION: Stable chest since 10/27/2018 study.
[2018-11-14 12:20] LABS: ALT/SGPT 23 U/L (12-78); AST/SGOT 28 U/L (15-37); Albumin 3.1 g/dL (3.4-5.0); Alkaline Phosphatase 79 U/L (45-117); BUN Blood Urea Nitrogen 48 mg/dL (7-18); Bicarbonate 33 mmol/L (21-32); Bilirubin Direct 0.1 mg/dL (0-0.2); Bilirubin Total 0.3 mg/dL (0.2-1.0); CKMB Creatine Kinase MB < 1.0 ng/mL (0.3-3.6); Creatine Phosphokinase 184 U/L (26-192); Glucose Level 82 mg/dL (74-106); Lipase 160 U/L (73-393); Potassium 3.4 mmol/L (3.5-5.1); Protein, Total 8.3 g/dL (6.4-8.2); Sodium Level 141 mmol/L (136-145); Troponin (Emerg Dept Use Only) 0.02 ng/mL (0.0-0.045)
[2018-11-14 13:20] LABS: Urine Bacteria >50 /HPF (<20); Urine Culture Reflex Order REFLEXED; Urine RBC <5 /HPF (NONE SEEN)
[2018-11-14] MEDS ORDERED: CEFTRIAXONE/SWI 1gm 1 GM/10 ML SYR ONE (13:36)
[2018-11-14] MEDS ORDERED: NA CHLORIDE 0.9% 500 ML ONE (13:45)
--- NOTE | 2018-11-14 14:55 | ER ---
Nurse's Notes [facility] Name: Dasha Brown Age: 88 yrs Sex: Female : 1930 Arrival Date: 11/14/2018 Time: 11:29 Bed 4 Private MD: Diagnosis: Urinary tract infection, site not specified;Syncope and collapse Presentation: 11/14 11:33 Presenting complaint: EMS states: were toned out for patient being unresponsive but iw breathing, states she was found slumped over in wheelchair, hypotensive 74/40, by the time EMS arrived pt was in bed, sitting up, talking, A\T\OX2 which is normal, BP = 116/50, pt had similar symptoms a few weeks ago, was hospitalized, pt is DNR. Transition of care: patient was not received from another setting of care. Onset of symptoms was November 14, 2018. Risk Assessment: Do you want to hurt yourself or someone else? Patient reports no desire to harm self or others. Initial Sepsis Screen: Does the patient meet any 2 criteria? No. Patient's initial sepsis screen is negative. Does the patient have a suspected source of infection? No. Patient's initial sepsis screen is negative. Care prior to arrival: Glucose check: 121 Oxygen administered. via nasal cannula. 11:33 Method Of Arrival: EMS: [facility] iw 11:33 Acuity: CY 3 iw Historical: - Allergies: 11:39 Lipitor; iw - Home Meds: 11:48 amlodipine 10 mg tab 1 tab once daily [Active]; Aricept 5 mg Oral tab 1 tab nightly iw [Active]; aspirin 81 mg Oral tab 1 tab once daily [Active]; clopidogrel 75 mg Oral tab 1 tab once daily [Active]; Combivent Respimat 20-100 mcg/actuation inhalation mist 1 puff 4 times per day [Active]; diclofenac sodium 0.1 % ophthalmic drop 1 drop three times a day [Active]; Flonase 50 mcg/actuation Nasal spsn 1 spray 2 times per day [Active]; ipratropium-albuterol 0.5 mg-3 mg(2.5 mg base)/3 mL Inhl nebu 3 mL 4 times per day [Active]; Klor-Con 10 10 mEq Oral TbER 1 tab once daily [Active]; loratadine 10 mg Oral tab 1 tab once daily [Active]; Lyrica 75 mg Oral 1 cap 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 - Ebola Screening: : Patient negative for fever greater than or equal to 101.5 degrees Fahrenheit, and additional compatible Ebola Virus Disease symptoms Patient denies exposure to infectious person Patient denies travel to an Ebola-affected area in the 21 days before illness onset No symptoms or risks identified at this time. - Social history:: Smoking status: Patient/guardian denies using tobacco. Screenin:15 Abuse screen: Denies threats or abuse. Denies injuries from another. Nutritional aj screening: No deficits noted. Tuberculosis screening: No symptoms or risk factors identified. Fall Risk None identified. Assessment: 12:15 General: Appears in no apparent distress. comfortable, Behavior is calm, cooperative, aj appropriate for age. Pain: Denies pain. Neuro: Level of Consciousness is awake, alert, obeys commands, Oriented to person, WNL for patient. Respiratory: Airway is patent Respiratory effort is even, unlabored, Respiratory pattern is regular, symmetrical. Derm: Skin is intact, is healthy with good turgor, Skin is pink, warm \T\ dry. normal. 13:07 Reassessment: Patient appears in no apparent distress at this time. Patient and/or ae4 family updated on plan of care and expected duration. Pain level reassessed. 14:10 Reassessment: Patient appears in no apparent distress at this time. No changes from ae4 previously documented assessment. Patient and/or family updated on plan of care and expected duration. Pain level reassessed. 15:07 Reassessment: Called [facility], spoke to Angi, receiving nurse to give ae4 report. Angi received report and states she is arranging transportation for patient to return to facility and will call back with an ETA. Vital Signs: 11:47 BP 131 / 53; Pulse 55; Resp 16 S; Pulse Ox 97% ; iw 11:50 Temp 97(A); Weight 58.97 kg (R); ae4 12:40 BP 120 / 44; Pulse 66; Resp 18; Pulse Ox 100% on R/A; aj 13:04 BP 128 / 76; Pulse 63; Resp 17; Pulse Ox 100% on 2 lpm NC; ae4 14:01 BP 125 / 50; Pulse 73; Resp 18; Pulse Ox 100% on R/A; aj 14:40 BP 121 / 50; Pulse 59; Resp 18; Pulse Ox 100% on R/A; ae4 ED Course: 11:29 Patient arrived in ED. iw 11:32 Rubén Gottlieb NP is PHCP. pm1 11:32 Margarito Cisneros MD is Attending Physician. pm1 11:32 Eyal Carlson, JARVIS is Primary Nurse. ae4 11:38 Triage completed. iw 11:59 Chest Single View XRAY In Process Unspecified. EDMS 12:07 CT Head Brain wo Cont In Process Unspecified. EDMS 12:07 CT completed. Patient tolerated procedure well. mw3 12:07 Patient moved back from CT. mw3 12:15 Patient has correct armband on for positive identification. Bed in low position. Call aj light in reach. Side rails up X2. manager play on. Pulse ox on. NIBP on. 12:15 Arm band placed on right wrist. ae4 12:15 Inserted saline lock: 20 gauge in right antecubital area, using aseptic technique. aj Blood collected. 12:30 Inserted saline lock: 22 gauge in left antecubital area, using aseptic technique. Blood ae4 collected. 12:50 Straight cath inserted, using sterile technique, 16 Fr. Specimen obtained. Returned ae4 Turbid urine, foul oder.. Inserted saline lock: 22 gauge in left antecubital area, using aseptic technique. Blood collected. 16:14 No provider procedures requiring assistance completed. IV discontinued, intact, ae4 bleeding controlled, No redness/swelling at site. Pressure dressing applied. Administered Medications: 13:36 Drug: Rocephin 1 grams Route: IV; Rate: calculated rate; Site: left antecubital; aj 16:18 Follow up: IV Status: Completed infusion ae4 13:37 Drug: NS 0.9% 500 ml Route: IV; Rate: 500 ml/hr; Site: right antecubital; joseph 16:14 Follow up: IV Status: Completed infusion ae4 Outcome: 14:54 Discharge ordered by MD. pm1 16:16 Discharged to senior living. Report called to Angi, receiving nurse. ae4 16:16 Condition: stable 16:16 Discharge instructions given to EMS, [facility]. Instructed on discharge instructions, follow up and referral plans. medication usage, Demonstrated understanding of instructions, Prescriptions given X 1. 16:17 Patient left the ED. ae4 Signatures: Dispatcher [employer] EDMS Juliana Veloz RN RN aj Williams, Irene RN Rubén Rosales NP COLLAR CUTTER pm1 Anna Lacy mw3 Eyal Carlson RN RN ae4 Corrections: (The following items were deleted from the chart) 16:17 16:16 Discharge instructions given to EMS, Instructed on discharge instructions, follow ae4 up and referral plans. medication usage, Demonstrated understanding of instructions, Prescriptions given X 1, ae4
--- NOTE | 2018-11-14 14:55 | EDPHYS ---
Physician Documentation [facility] Name: Dasha Brown Age: 88 yrs Sex: Female : 1930 Arrival Date: 11/14/2018 Time: 11:29 Bed 4 Private MD: ED Physician Margarito Cisneros HPI: 11/14 12:23 This 88 yrs old Female presents to ER via EMS with complaints of Syncope. pm1 12:23 The patient has experienced syncope. Onset: The symptoms/episode began/occurred just pm1 prior to arrival. Duration: This was a single episode. Context: occurred at a correction or assisted living facility, occurred while the patient was sitting. Associated injury: The patient did not suffer any apparent associated injury. Associated signs and symptoms: The patient has no apparent associated signs or symptoms. Current symptoms: Currently, the patient is not experiencing any symptoms, the patient feels back to baseline. The patient has experienced a previous episode, approximately 1 months ago. The patient has not recently seen a physician. Patient at correction sitting in wheel chair with possible syncopal episode. According to correction she had decreased responsiveness and hypotension. EMS called and patient at baseline on EMS arrival with normal vital signs. 12:23 Patient without any complaints. Patient at baseline AAO X1, name. pm1 Historical: - Allergies: 11:39 Lipitor; iw - Home Meds: 11:48 amlodipine 10 mg tab 1 tab once daily [Active]; Aricept 5 mg Oral tab 1 tab nightly iw [Active]; aspirin 81 mg Oral tab 1 tab once daily [Active]; clopidogrel 75 mg Oral tab 1 tab once daily [Active]; Combivent Respimat 20-100 mcg/actuation inhalation mist 1 puff 4 times per day [Active]; diclofenac sodium 0.1 % ophthalmic drop 1 drop three times a day [Active]; Flonase 50 mcg/actuation Nasal spsn 1 spray 2 times per day [Active]; ipratropium-albuterol 0.5 mg-3 mg(2.5 mg base)/3 mL Inhl nebu 3 mL 4 times per day [Active]; Klor-Con 10 10 mEq Oral TbER 1 tab once daily [Active]; loratadine 10 mg Oral tab 1 tab once daily [Active]; Lyrica 75 mg Oral 1 cap 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 - Ebola Screening: : Patient negative for fever greater than or equal to 101.5 degrees Fahrenheit, and additional compatible Ebola Virus Disease symptoms Patient denies exposure to infectious person Patient denies travel to an Ebola-affected area in the 21 days before illness onset No symptoms or risks identified at this time. - Social history:: Smoking status: Patient/guardian denies using tobacco. ROS: 12:23 Constitutional: Negative for fever, chills, and weight loss, Eyes: Negative for injury, pm1 pain, redness, and discharge, ENT: Negative for injury, pain, and discharge, Neck: Negative for injury, pain, and swelling, Cardiovascular: Negative for chest pain, palpitations, and edema, Respiratory: Negative for shortness of breath, cough, wheezing, and pleuritic chest pain, Abdomen/GI: Negative for abdominal pain, nausea, vomiting, diarrhea, and constipation, Back: Negative for injury and pain, : Negative for injury, bleeding, discharge, and swelling, MS/Extremity: Negative for injury and deformity, Skin: Negative for injury, rash, and discoloration. 12:23 Neuro: Positive for syncope, Negative for numbness, tingling, weakness. Exam: 12:23 Abdomen/GI: Exam negative for Inspection: abdomen appears normal, Bowel sounds: normal, pm1 Palpation: abdomen is soft and non-tender, in all quadrants, mass, is not appreciated, rebound tenderness, is not appreciated. 12:23 Constitutional: This is a well developed, well nourished patient who is awake, alert, and in no acute distress. Head/Face: Normocephalic, atraumatic. Neck: Trachea midline, no thyromegaly or masses palpated, and no cervical lymphadenopathy. Supple, full range of motion without nuchal rigidity, or vertebral point tenderness. No Meningismus. Chest/axilla: Normal chest wall appearance and motion. Nontender with no deformity. No lesions are appreciated. Cardiovascular: Regular rate and rhythm with a normal S1 and S2. No gallops, murmurs, or rubs. Normal PMI, no JVD. No pulse deficits. Respiratory: Lungs have equal breath sounds bilaterally, clear to auscultation and percussion. No rales, rhonchi or wheezes noted. No increased work of breathing, no retractions or nasal flaring. Back: No spinal tenderness. No costovertebral tenderness. Full range of motion. Skin: Warm, dry with normal turgor. Normal color with no rashes, no lesions, and no evidence of cellulitis. MS/ Extremity: Pulses equal, no cyanosis. Neurovascular intact. Full, normal range of motion. 12:23 Neuro: Orientation: is normal, Motor: is normal, moves all fours, Sensation: is normal, no obvious gross deficits. Vital Signs: 11:47 BP 131 / 53; Pulse 55; Resp 16 S; Pulse Ox 97% ; iw 11:50 Temp 97(A); Weight 58.97 kg (R); ae4 12:40 BP 120 / 44; Pulse 66; Resp 18; Pulse Ox 100% on R/A; aj 13:04 BP 128 / 76; Pulse 63; Resp 17; Pulse Ox 100% on 2 lpm NC; ae4 14:01 BP 125 / 50; Pulse 73; Resp 18; Pulse Ox 100% on R/A; aj 14:40 BP 121 / 50; Pulse 59; Resp 18; Pulse Ox 100% on R/A; ae4 MDM: 11:34 Patient medically screened. pm1 14:30 Data reviewed: vital signs. Data interpreted: Pulse oximetry: on room air is 100 %. pm1 Interpretation: normal. 14:48 Counseling: I had a detailed discussion with the patient and/or guardian regarding: the pm1 historical points, exam findings, and any diagnostic results supporting the discharge/admit diagnosis, lab results, radiology results, the need for outpatient follow up, to return to the emergency department if symptoms worsen or persist or if there are any questions or concerns that arise at home. 11/14 11:44 Order name: Basic Metabolic Panel pm1 07/13 11:44 Order name: Blood Culture Adult (2) pm1 11/14 11:44 Order name: CBC with Diff; Complete Time: 12:23 pm11/14 11:44 Order name: Ckmb; Complete Time: 12:23 pm1 11/14 11:44 Order name: CPK; Complete Time: 12:23 pm11/14 11:44 Order name: Lactate; Complete Time: 13:07 pm11/14 11:44 Order name: LFT's; Complete Time: 12:23 pm11/14 11:44 Order name: Lipase; Complete Time: 12:23 pm11/14 11:44 Order name: Procalcitonin; Complete Time: 13:07 pm11/14 11:44 Order name: Protime (+inr); Complete Time: 12:23 pm11/14 11:44 Order name: Ptt, Activated; Complete Time: 12:23 pm11/14 11:44 Order name: Troponin (emerg Dept Use Only); Complete Time: 12:23 pm11/14 11:44 Order name: Urine Microscopic Only; Complete Time: 13:24 pm11/14 11:45 Order name: Basic Metabolic Panel; Complete Time: 12:23 EDMS 11/14 11:44 Order name: Chest Single View XRAY; Complete Time: 12:23 pm11/14 11:44 Order name: Accucheck; Complete Time: 13:03 pm11/14 11:44 Order name: Cardiac monitoring; Complete Time: 11:57 pm11/14 11:44 Order name: EKG - Nurse/Tech; Complete Time: 12:59 pm11/14 11:44 Order name: IV Saline Lock - Large Bore; Complete Time: 11:57 pm11/14 11:44 Order name: Labs collected and sent; Complete Time: 11:57 pm11/14 11:44 Order name: O2 Per Protocol; Complete Time: 11:57 pm11/14 11:44 Order name: O2 Sat Monitoring; Complete Time: 11:57 pm11/14 11:44 Order name: Urine Dipstick-Ancillary (obtain specimen); Complete Time: 12:59 pm11/14 11:44 Order name: CT Head Brain wo Cont; Complete Time: 12:24 pm1 11/14 11:45 Order name: Blood Culture EDMS 11/14 13:04 Order name: Straight Cath - Urine; Complete Time: 13:04 ae4 11/14 13:23 Order name: Urine Culture EDTX Administered Medications: 13:36 Drug: Rocephin 1 grams Route: IV; Rate: calculated rate; Site: left antecubital; aj 16:18 Follow up: IV Status: Completed infusion ae4 13:37 Drug: NS 0.9% 500 ml Route: IV; Rate: 500 ml/hr; Site: right antecubital; aj 16:14 Follow up: IV Status: Completed infusion ae4 Disposition: 16:24 Co-signature as Attending Physician, Margariot Cisneros MD. rn Disposition: 11/14/18 14:54 Discharged to Home. Impression: Urinary tract infection, site not specified, Syncope and collapse. - Condition is Stable. - Discharge Instructions: Syncope, Urinary Tract Infection, Adult. - Prescriptions for Keflex 500 mg Oral Capsule - take 1 capsule by ORAL route every 6 hours for 10 days; 40 capsule. - Medication Reconciliation Form, Thank You Letter, Antibiotic Education, Prescription Opioid Use form. - Follow up: Emergency Department; When: As needed; Reason: Worsening of condition. Follow up: Private Physician; When: 2 - 3 days; Reason: Recheck today's complaints, Continuance of care, Re-evaluation by your physician. - Problem is new. - Symptoms have improved. Signatures: Dispatcher [employer] EDTX Juliana Veloz RN RN aj Williams, Irene, RN RN iw Nieto, Roman, MD MD rn Marinas, Patrick, COLOR DRUM WORKER [employer] WORKER pm1 Eyal Carlson RN RN ae4 Corrections: (The following items were deleted from the chart) 16:17 14:54 11/14/2018 14:54 Discharged to Home. Impression: Urinary tract infection, site ae4 not specified; Syncope and collapse. Condition is Stable. Forms are Medication Reconciliation Form, Thank You Letter, Antibiotic Education, Prescription Opioid Use. Follow up: Emergency Department; When: As needed; Reason: Worsening of condition. Follow up: Private Physician; When: 2 - 3 days; Reason: Recheck today's complaints, Continuance of care, Re-evaluation by your physician. Problem is new. Symptoms have improved. pm1
== END 2018-11-14 16:17 | disposition home or self-care (01) ==
LOC: ER 11:26
DX: N39.0 Urinary tract infection, site not specified (principal); I10 Essential (primary) hypertension; J44.9 Chronic obstructive pulmonary disease, unspecified; E78.5 Hyperlipidemia, unspecified; F03.90 Unspecified dementia, unspecified severity, without behavioral disturbance, psychotic disturbance, mood disturbance, and anxiety; Z79.82 Long term (current) use of aspirin; Z88.8 Allergy status to other drugs, medicaments and biological substances; Z86.73 Personal history of transient ischemic attack (TIA), and cerebral infarction without residual deficits
CPT/HCPCS: 96365; 87040 ×2; 87088; 85025; 87086; 80048; 36415; 82550; 85610; 80076; 83605; 85730; 87077; 87186; 81015; 84484; 82553; 83690; 84145; 70450; 71045; 51702; 99285; 96366; J0696